=== PATIENT | female | born 1960 | race Asian ===

== ENCOUNTER 2022-09-11 20:41 | Inpatient (IN) ==
[2022-09-11 21:27] LABS: Basophils # (auto) 0.04 K/uL (0-0.2); Basophils % (auto) 0.5 %; Eosinophils # (auto) 0.47 K/uL (0-0.50); Eosinophils % (auto) 5.8 %; Hematocrit (blood only) 35.1 % (37.0-47.0); Hemoglobin 11.4 g/dl (12.0-16.0); Immature Granulocytes # (auto) 0.02 K/uL (0.01-0.20); Immature Granulocytes % (auto) 0.2 %; Lymphocytes # (auto) 2.42 K/uL (1.2-3.4); Lymphocytes % (auto) 29.7 %; Mean Corpuscular Hemoglobin 26.3 pg (25.0-34.0); Mean Corpuscular Hgb Conc 32.5 g/dL (32.0-36.0); Mean Corpuscular Volume 81.1 fL (80.0-100.0); Mean Platelet Volume 9.1 fL (9.4-12.4); Monocytes # (auto) 0.77 K/uL (0.11-0.59); Monocytes % (auto) 9.4 %; Neutrophils # (auto) 4.43 K/uL (1.40-6.50); Neutrophils % (auto) 54.4 %; Platelet Count 292 K/uL (130-400); RDW Coefficient of Variation 14.1 % (11.5-14.5); RDW Standard Deviation 41.7 fL (36.4-46.3); Red Blood Count 4.33 M/uL (4.20-5.40); White Blood Count 8.15 K/ul (4.8-10.8)
[2022-09-11 21:31] LABS: Alanine Aminotransferase 52 U/L (7-52); Albumin Globulin Ratio 1.4 (0.9-2); Alkaline Phosphatase 81 U/L (34-104); Anion Gap 7 (3-11); Aspartate Aminotransferase 55 U/L (13-39); BUN Creatinine Ratio 13.9 (10-20); Bilirubin,Total 0.4 mg/dl (0.2-1.0); Blood Urea Nitrogen 11 mg/dl (6-23); Calcium 9.2 mg/dl (8.6-10.3); Carbon Dioxide 25 mmol/L (21-32); Chloride 105 mmol/L (98-107); Est GFR (African American) 92.3 ml/min; Est GFR (Non-African American) 79.7 ml/min; Globulin 2.8 gm/dl (2.5-4.0); Glucose 130 mg/dl (70-99(Fasting)); Potassium 3.9 mmol/L (3.5-5.1); Sodium 137 mmol/L (136-145); Total Protein 6.8 gm/dl (6.0-8.3)
[2022-09-11 21:36] LABS: Troponin I High Sensitivity 3.7 pg/ml (0-14)
[2022-09-11 21:46] LABS: INR 0.9 (0.9-1.1); Partial Thromboplastin Ratio 0.9; Partial Thromboplastin Time 24.7 Seconds (21.0-31.0); Prothrombin Time 10.3 Seconds (9.0-12.0)
[2022-09-11 23:09] LABS: Magnesium 1.9 mg/dl (1.7-2.4)
[2022-09-11] MEDS ORDERED: SODIUM CHLORIDE 0.9% 1000ML 1,000 ML IV ONE (23:57)
--- NOTE | 2022-09-12 00:23 | Emergency Department Note ---
Impression & Plan Syncope Admit to the [facility] ED Provider Note NAME: QUIANA ZUNIGA AGE: 61 SEX: F ARRIVES VIA: Walk-In INFORMANT: Patient and her daughter ED PROVIDER(S): Renetta Sanchez DO CHIEF COMPLAINT: Syncope PLAN: Disposition: Admit to the [facility] Condition: Guarded MEDICAL DECISION MAKING: This is a 61-year-old female patient who presents to the emergency department with her daughter after having 2 syncopal events at home. 1 episode was from a standing position after she had felt dizzy and lightheaded. The second episode was while the patient was eating. Patient has a history of near syncope following episode of electrolyte imbalance during a bout of dysentery. 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 There are no significant electrolyte abnormalities here in the emergency department today. Glucose is mildly elevated at 130. The patient is mildly anemic with a hemoglobin of 11.4. There is no leukocytosis. TSH and troponin are normal. AST is mildly elevated at 55. EKG is unremarkable. Orthostatic vital signs were negative. Patient was sent for CT scan of the brain which was negative. Patient continued to feel unwell with a head spinning sensation and dizziness which was worse upon standing. Patient will remain in the hospital on a pvc monitor to rule out dysrhythmia. [facility] Triage Nursing notes reviewed and agree with them. Additional history obtained from the daughter who is translating Vital Signs: reviewed and unremarkable Differential diagnosis: Dehydration, electrolyte abnormality, cardiac dysrhythmia, seizure, vasovagal syncope, vertigo ER treatment provided: Cardiac monitoring Twelve-lead EKG IV normal saline bolus Diagnostics interpreted by me: ECG: Normal sinus rhythm at a rate of [address] segment elevation or signs of ischemia. There is no ectopy. Cardiac Monitoring: Normal sinus rhythm at 81 Laboratory studies: See below Imaging studies: As per my independent interpretation Portable chest x-ray: No cardiomegaly or acute pulmonary pathology CT scan of the brain: See radiology report Consultation: I spoke on the telephone with a friend of the family who is a primary care physician in [place] HPI: 61/F arrives for evaluation of syncope. Patient felt dizzy yesterday and as if her head was spinning. She noticed that her dizziness got worse upon standing. Today, the patient had 2 separate episodes of fainting on while she was standing and one while she was sitting. She did not injure herself in any way. She has not had previous episodes of fainting. Daughter believes this may be as result of her not eating properly. PAST MEDICAL HISTORY:Hypertension, hypercholesterolemia, insomnia SOCIAL HISTORY:Patient is currently visiting her daughter here in the [place] from [facility]. She does not smoke or drink alcohol. HOME MEDICATIONS:See list ALLERGIES:See list VITALS:See Below PHYSICAL EXAMINATION: HEENT: Head - normocephalic and atraumatic. Pupils are equal, round, and reactive to light. Extraocular eye muscles are intact and sclera are anicteric. Ears - bilaterally patent canals with noninjected tympanic membranes and no evidence of hemotympanum. Nose - moist nasal mucosa without discharge. Mouth - extremely dry buccal mucosa. Oropharynx is nonerythematous and there is no tonsillar exudate or edema noted. Neck: Supple; no JVD, nuchal rigidity, cervical lymphadenopathy, or auscultated bruits. Heart: Regular rate and rhythm. There is a normal S1 and S2 with no murmurs, clicks, or gallops appreciated. Lungs: Clear to auscultation bilaterally with no wheezes, rales, or rhonchi. Abdomen: Soft, completely nontender, nondistended, with good bowel sounds. There are no palpable pulsatile masses or hepatosplenomegaly. There is no guarding, rigidity, or rebound noted. Extremities: No evidence of cyanosis, clubbing, or edema. There are easily palpable peripheral pulses. Neuro:The patient is awake and alert, oriented to day, time, and place. Muscle strength is 5/5 in all 4 extremities. 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 There are no cerebellar signs. ED COURSE: Times/Reassessments: 955 the patient was evaluated in room C2. A complete history and physical was performed. An IV lock was initiated and labs were drawn as above. An order was placed for continuous cardiac monitoring. The patient was in a normal sinus rhythm at a rate of 81. A twelve-lead EKG was obtained as described above. Orthostatic vital signs were obtained. A portable chest x-ray was performed. The patient was bolused with IV normal saline solution. Patient got up to go to the bathroom and seemed to be steady on her feet but when she returned to bed she seemed to be somewhat dizzy. I discussed the case with the patient family friend who is a physician in [place]. He was able to translate a bit better. Renetta Sanchez DO Past Med/Surg History Social History Smoking Status: Never smoker Second Hand Exposure: No; Do You Dip or Chew Tobacco: No; Hx Alcohol Use: No Hx Substance Use: No Preferred Language: Syriac Communication Ability: Effective Communication Tools: IPad Associate Professor Of Literacy Required: Yes and Voice Beliefs That Will Affect Care: None Current Living Situation: Family Other Information That Helps Us Care for You: No Feels Safe at Home: Yes Safety Concerns: Feels Safe At This Time Assistive Devices: None Allergies Allergies Allergy/AdvReac Type Severity Reaction Status Date / Time chicken derived AdvReac Intermediate Gastrointestinal Verified 09/11/22 22:55 Upset egg AdvReac Intermediate Gastrointestinal Verified 09/11/22 22:55 Upset pork derived (porcine) AdvReac Mild advent Verified 09/12/22 03:39 reason Home Meds Home Medications Medication Instructions Recorded Confirmed bisoprolol fumarate 5 mg tablet 2.5 mg PO DAILY 09/11/22 09/11/22 atorvastatin 10 mg PO DAILY 09/12/22 09/12/22 montelukast 10 mg PO DAILY 09/12/22 09/12/22 pantoprazole 20 mg PO DAILY PRN reflux 09/12/22 09/12/22 Results & Data (ED) Vital Signs Vital Signs - 24 hr 09/11/22 20:45 09/11/22 21:40 09/11/22 21:15 Temperature 36.8 C 36.8 C Temperature Source Temporal Artery Scan Oral Pulse Rate - Lying Pulse Rate - Sitting Pulse Rate 97 H 90 Pulse Rate [Left] 87 Respiratory Rate 18 18 Respiratory Effort / Characteristics Non-Labored Spontaneous Non-Labored Respiratory Depth Normal Normal Respiratory Pattern Regular Regular Blood Pressure - Lying Blood Pressure - Sitting Blood Pressure 156/81 H Blood Pressure [Left Arm] 125/88 Blood Pressure Mean 106 Blood Pressure Mean [Left Arm] 100 Pulse Oximetry 97 99 Oxygen Delivery Method Room Air Room Air Sepsis Recent Fever Within 48 Hours No Sepsis New/Unexplained Change in Mental Status No Sepsis Action Taken by Nursing No Action Required 09/11/22 22:47 09/11/22 23:13 09/12/22 01:00 Temperature Temperature Source Pulse Rate - Lying 83 Pulse Rate - Sitting 84 Pulse Rate 90 Pulse Rate [Left] 81 Respiratory Rate 16 Respiratory Effort / Characteristics Respiratory Depth Respiratory Pattern Blood Pressure - Lying 144/80 H Blood Pressure - Sitting 135/82 Blood Pressure Blood Pressure [Left Arm] 131/77 Blood Pressure Mean Blood Pressure Mean [Left Arm] 95 Pulse Oximetry 98 Oxygen Delivery Method Room Air Sepsis Recent Fever Within 48 Hours Sepsis New/Unexplained Change in Mental Status Sepsis Action Taken by Nursing Laboratory Data 09/11/22 21:00 09/11/22 21:00 Lab Results 09/11/22 09/11/22 09/11/22 Range/Units 21:00 21:00 21:00 WBC 8.15 (4.8-10.8) K/ul RBC 4.33 (4.20-5.40) M/uL Hgb 11.4 L (12.0-16.0) g/dl Hct 35.1 L (37.0-47.0) % MCV 81.1 (80.0-100.0) fL MCH 26.3 (25.0-34.0) pg MCHC 32.5 (32.0-36.0) g/dL RDW Std Deviation 41.7 (36.4-46.3) fL RDW Coeff of [place] 14.1 (11.5-14.5) % Plt Count 292 (130-400) K/uL MPV 9.1 L (9.4-12.4) fL Immature Gran % (Auto) 0.2 % Neut % (Auto) 54.4 % Lymph % (Auto) 29.7 % Montgomery % (Auto) 9.4 % Eos % (Auto) 5.8 % Baso % (Auto) 0.5 % Neut # (Auto) 4.43 (1.40-6.50) K/uL Lymph # (Auto) 2.42 (1.2-3.4) K/uL Montgomery # (Auto) 0.77 H (0.11-0.59) K/uL Eos # (Auto) 0.47 (0-0.50) K/uL Baso # (Auto) 0.04 (0-0.2) K/uL Immature Gran # (Auto) 0.02 (0.01-0.20) K/uL PT 10.3 (9.0-12.0) Seconds INR 0.9 (0.9-1.1) APTT 24.7 (21.0-31.0) Seconds PTT Ratio 0.9 Sodium 137 (136-145) mmol/L Potassium 3.9 (3.5-5.1) mmol/L Chloride 105 (98-107) mmol/L Carbon Dioxide 25 (21-32) mmol/L Anion Gap 7 (3-11) BUN 11 (6-23) mg/dl Creatinine 0.79 (0.6-1.2) mg/dl Est Cr Clr Drug Dosing Not Reportable Est GFR ( Amer) 92.3 ml/min Est GFR (Non-Af Amer) 79.7 ml/min BUN/Creatinine Ratio 13.9 (10-20) Glucose 130 H (70-99(Fasting)) mg/dl Estimat Average Glucose mg/dl Hemoglobin A1c (4.5-5.6) % Calcium 9.2 (8.6-10.3) mg/dl Magnesium 1.9 (1.7-2.4) mg/dl Total Bilirubin 0.4 (0.2-1.0) mg/dl AST 55 H (13-39) U/L ALT 52 (7-52) U/L Alkaline Phosphatase 81 (34-104) U/L Troponin I High Sens 3.7 (0-14) pg/ml Total Protein 6.8 (6.0-8.3) gm/dl Albumin 4.0 (3.4-5.0) gm/dl Globulin 2.8 (2.5-4.0) gm/dl Albumin/Globulin Ratio 1.4 (0.9-2) TSH (0.300-4.500) uIu/ml Urine Color Urine Appearance (Clear) Urine pH (4.5-7.5) Ur Specific Homer (1.000-1.030) Urine Protein (Negative) Urine Glucose (UA) (Negative) Urine Ketones (Negative) Urine Blood (Negative) Urine Nitrite (Negative) Urine Bilirubin (Negative) Urine Urobilinogen (Negative) Ur Leukocyte Esterase (Negative) SARS-CoV-2, RNA, NAAT (NEGATIVE) 09/11/22 09/11/22 09/11/22 Range/Units 21:00 21:00 23:26 WBC (4.8-10.8) K/ul RBC (4.20-5.40) M/uL Hgb (12.0-16.0) g/dl Hct (37.0-47.0) % MCV (80.0-100.0) fL MCH (25.0-34.0) pg MCHC (32.0-36.0) g/dL RDW Std Deviation (36.4-46.3) fL RDW Coeff of [place] (11.5-14.5) % Plt Count (130-400) K/uL MPV (9.4-12.4) fL Immature Gran % (Auto) % Neut % (Auto) % Lymph % (Auto) % Montgomery % (Auto) % Eos % (Auto) % Baso % (Auto) % Neut # (Auto) (1.40-6.50) K/uL Lymph # (Auto) (1.2-3.4) K/uL Montgomery # (Auto) (0.11-0.59) K/uL Eos # (Auto) (0-0.50) K/uL Baso # (Auto) (0-0.2) K/uL Immature Gran # (Auto) (0.01-0.20) K/uL PT (9.0-12.0) Seconds INR (0.9-1.1) APTT (21.0-31.0) Seconds PTT Ratio Sodium (136-145) mmol/L Potassium (3.5-5.1) mmol/L Chloride (98-107) mmol/L Carbon Dioxide (21-32) mmol/L Anion Gap (3-11) BUN (6-23) mg/dl Creatinine (0.6-1.2) mg/dl Est Cr Clr Drug Dosing Est GFR ( Amer) ml/min Est GFR (Non-Af Amer) ml/min BUN/Creatinine Ratio (10-20) Glucose (70-99(Fasting)) mg/dl Estimat Average Glucose 140 mg/dl Hemoglobin A1c 6.5 H (4.5-5.6) % Calcium (8.6-10.3) mg/dl Magnesium (1.7-2.4) mg/dl Total Bilirubin (0.2-1.0) mg/dl AST (13-39) U/L ALT (7-52) U/L Alkaline Phosphatase (34-104) U/L Troponin I High Sens 3.5 (0-14) pg/ml Total Protein (6.0-8.3) gm/dl Albumin (3.4-5.0) gm/dl Globulin (2.5-4.0) gm/dl Albumin/Globulin Ratio (0.9-2) TSH 2.008 (0.300-4.500) uIu/ml Urine Color Urine Appearance (Clear) Urine pH (4.5-7.5) Ur Specific Homer (1.000-1.030) Urine Protein (Negative) Urine Glucose (UA) (Negative) Urine Ketones (Negative) Urine Blood (Negative) Urine Nitrite (Negative) Urine Bilirubin (Negative) Urine Urobilinogen (Negative) Ur Leukocyte Esterase (Negative) SARS-CoV-2, RNA, NAAT (NEGATIVE) 09/12/22 09/12/22 Range/Units 01:28 02:15 WBC (4.8-10.8) K/ul RBC (4.20-5.40) M/uL Hgb (12.0-16.0) g/dl Hct (37.0-47.0) % MCV (80.0-100.0) fL MCH (25.0-34.0) pg MCHC (32.0-36.0) g/dL RDW Std Deviation (36.4-46.3) fL RDW Coeff of [place] (11.5-14.5) % Plt Count (130-400) K/uL MPV (9.4-12.4) fL Immature Gran % (Auto) % Neut % (Auto) % Lymph % (Auto) % Montgomery % (Auto) % Eos % (Auto) % Baso % (Auto) % Neut # (Auto) (1.40-6.50) K/uL Lymph # (Auto) (1.2-3.4) K/uL Montgomery # (Auto) (0.11-0.59) K/uL Eos # (Auto) (0-0.50) K/uL Baso # (Auto) (0-0.2) K/uL Immature Gran # (Auto) (0.01-0.20) K/uL PT (9.0-12.0) Seconds INR (0.9-1.1) APTT (21.0-31.0) Seconds PTT Ratio Sodium (136-145) mmol/L Potassium (3.5-5.1) mmol/L Chloride (98-107) mmol/L Carbon Dioxide (21-32) mmol/L Anion Gap (3-11) BUN (6-23) mg/dl Creatinine (0.6-1.2) mg/dl Est Cr Clr Drug Dosing Est GFR ( Amer) ml/min Est GFR (Non-Af Amer) ml/min BUN/Creatinine Ratio (10-20) Glucose (70-99(Fasting)) mg/dl Estimat Average Glucose mg/dl Hemoglobin A1c (4.5-5.6) % Calcium (8.6-10.3) mg/dl Magnesium (1.7-2.4) mg/dl Total Bilirubin (0.2-1.0) mg/dl AST (13-39) U/L ALT (7-52) U/L Alkaline Phosphatase (34-104) U/L Troponin I High Sens (0-14) pg/ml Total Protein (6.0-8.3) gm/dl Albumin (3.4-5.0) gm/dl Globulin (2.5-4.0) gm/dl Albumin/Globulin Ratio (0.9-2) TSH (0.300-4.500) uIu/ml Urine Color Yellow Urine Appearance Clear (Clear) Urine pH 7.5 (4.5-7.5) Ur Specific Homer 1.004 (1.000-1.030) Urine Protein Negative (Negative) Urine Glucose (UA) Negative (Negative) Urine Ketones Negative (Negative) Urine Blood Negative (Negative) Urine Nitrite Negative (Negative) Urine Bilirubin Negative (Negative) Urine Urobilinogen Negative (Negative) Ur Leukocyte Esterase Negative (Negative) SARS-CoV-2, RNA, NAAT NEGATIVE (NEGATIVE) Administered Medications Acetaminophen (Acetaminophen 325 Mg Tab) 650 mg PO Q4H PRN PRN Reason: Pain or Fever Stop: 10/12/22 04:40 Last Admin: 09/12/22 15:49 Dose: 650 mg Documented By: VANCE Amlodipine Besylate (Amlodipine Besylate 5 Mg Tab) 2.5 mg PO QAM [facility] Stop: 10/13/22 04:09 Last Admin: 09/13/22 04:57 Dose: 2.5 mg Documented By: CLEMENTINA Atorvastatin Calcium (Atorvastatin 10 Mg Tab) 10 mg PO HS ESAU Stop: 10/12/22 20:59 Last Admin: 09/12/22 21:03 Dose: Not Given Documented By: CLEMENTINA Potassium Chloride/Sodium Chloride (Normal Saline W/20 Meq Kcl) 20 meq in 1,000 mls @ 50 mls/hr IV .Q20H ONE; Protocol Stop: 09/13/22 23:59 Last Admin: 09/13/22 04:38 Dose: 50 mls/hr Documented By: CLEMENTINA Montelukast Sodium (Montelukast Sodium 10 Mg Tablet) 10 mg PO DAILY ESAU Stop: 10/12/22 08:59 Last Admin: 09/13/22 08:19 Dose: 10 mg Documented By: Admin: 09/12/22 09:19 Dose: Not Given Documented By: VANCE Discontinued Medications Acetaminophen (Acetaminophen 325 Mg Tab) 650 mg PO NOW STA Stop: 09/12/22 04:05 Last Admin: 09/12/22 04:09 Dose: 650 mg Documented By: NOEL Atorvastatin Calcium (Atorvastatin 10 Mg Tab) 10 mg PO DAILY ESAU Stop: 10/12/22 08:59 Last Admin: 09/12/22 09:19 Dose: Not Given Documented By: VANCE Sodium Chloride (Nss 1000ml) 1,000 mls @ 999 mls/hr IV .Q1H1M ONE Stop: 09/12/22 00:57 Last Infusion: 09/12/22 01:58 Dose: 0 mls/hr Documented By: Admin: 09/12/22 00:37 Dose: 999 mls/hr Documented By: NOEL Lactated Ringer's (Lr) 1,000 mls @ 125 mls/hr IV .Q8H ONE Stop: 09/12/22 11:24 Last Infusion: 09/12/22 16:08 Dose: 0 mls/hr Documented By: Infusion: 09/12/22 09:10 Dose: 125 mls/hr Documented By: Infusion: 09/12/22 05:14 Dose: 0 mls/hr Documented By: Admin: 09/12/22 03:37 Dose: 80 mls/hr Documented By: NOEL Magnesium Sulfate/Dextrose (Magnesium Sulfate / D5w) 1 gm in 100 mls @ 50 mls/hr IV ONE ONE Stop: 09/13/22 05:46 Last Admin: 09/13/22 04:38 Dose: 50 mls/hr Documented By: QG Nitroglycerin (Nitroglycerin Sl 0.4 Mg/Tab Tab) 0.4 mg SL NOW STA Stop: 09/13/22 03:45 Last Admin: 09/13/22 04:12 Dose: Not Given Documented By: CLEMENTINA Pantoprazole Sodium (Pantoprazole 40 Mg Tab) 40 mg PO DAILY [facility] Stop: 10/12/22 08:59 Last Admin: 09/12/22 09:19 Dose: Not Given Documented By: VANCE Pantoprazole Sodium (Pantoprazole 40 Mg Tab) 40 mg PO DAILY PRN PRN Reason: gerd Stop: 10/12/22 08:59 Last Admin: 09/12/22 21:01 Dose: 40 mg Documented By: CLEMENTINA Potassium Chloride (Potassium Chloride Pwd 20 Meq Pack) 20 meq PO NOW STA Stop: 09/13/22 05:15 Last Admin: 09/13/22 05:44 Dose: 20 meq Documented By: QG Discharge Plan Visit Data Chief Complaint: Syncope Stated Complaint: SYNCOPE ED Provider: Renetta Sanchez Discharge Problem: Syncope Patient Disposition: Admitted As Inpatient Discharge Instructions Interventions: ED Discharge Assessment Last Done: 09/12/22 04:48 Syncope Qualifiers: Syncope type: unspecified Qualified Code(s): R55 - Syncope and collapse
[2022-09-12 01:57] LABS: Appearance Urine Clear (Clear); Bilirubin Urine Negative (Negative); Blood Urine Negative (Negative); Color Urine Yellow; Glucose Urine UA Negative (Negative); Ketones Urine Negative (Negative); Leukocyte Esterase Urine Negative (Negative); Nitrite Urine Negative (Negative); Protein Urine Negative (Negative); Specific Gravity Urine 1.004 (1.000-1.030); Urobilinogen Urine Negative (Negative); pH Urine 7.5 (4.5-7.5)
--- NOTE | 2022-09-12 02:29 | CT Scan Report ---
Exam(s): CT HEAD Without Contrast EXAM: CT Head Without Intravenous Contrast CLINICAL HISTORY: Syncope hit head. TECHNIQUE: Axial computed tomography images of the head/brain without intravenous contrast. CTDI is 36.67 mGy and DLP is 625.8 mGy-cm. Automated exposure control was utilized for the study. A dose lowering technique was utilized adhering to the principles of ALARA. COMPARISON: No relevant prior studies available. FINDINGS: Brain: Unremarkable. No hemorrhage. No significant white matter disease. No edema. Ventricles: Unremarkable. No ventriculomegaly. Bones/joints: Unremarkable. No acute fracture. Soft tissues: No significant overlying acute traumatic soft tissue abnormality. No radiopaque foreign body. Sinuses: Minimal mucosal thickening of a few ethmoid air cells and the minimally included superior right maxillary sinus. Mastoid air cells: Unremarkable as visualized. No mastoid effusion. IMPRESSION: No acute intracranial process identified. Electronically signed by: Carmine Hooks MD 09/12/22 02:28 AM
--- NOTE | 2022-09-12 03:24 | History & Physical Report ---
Date of Service September 12, 2022 Assessment & Plan (1) Syncope: Plan: 2 witnessed recurrent events Possible orthostasis given more pronounced symptoms in the upright position as per patient rule out Rule out arrhythmia, cardiac valvular pathology HTN, currently stable hyperlipidemia on statin Rx hx GERD, on intermittent PPI chronic anemia, hemoglobin at baseline Hyperglycemia rule out DM OBS Medical telemetry IVF continue Check orthostatic vitals, TTE for syncope work-up Continue home beta-rohith for now Hold amlodipine/losartan combo Rx (Of note, patient requesting to take her home meds procured in [facility] inpatient.) Check hemoglobin A1c DVT prophylaxis. SCDs Re: Recent head trauma Full code Patient daughter requesting updates from providers. Ms. Ramila Andrews, contact #[phone]. Text document was generated using TSB voice recognition software. It may contain grammatical or spelling errors. Kindly contact undersigned for clarification of any documentation item in question. History of Present Illness Chief Complaint: Recurrent syncope Primary Care Provider: NO PCP History obtained from patient, family, and records. Medical history significant for HTN, hyperlipidemia, GERD, chronic anemia (possible baseline hemoglobin of 11-12 as per patient). 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 Patient not feeling well the last few days. Patient noted lightheaded symptoms on the upright position last night. Transient syncopal event resulting in head trauma witnessed by daughter. Patient remembers blacking out. Denies chest pain, SOB. No witnessed seizures, tongue biting, incontinence. Headache after head trauma. Patient may have been out for about a minute as per daughter. Another syncopal event witnessed by daughter while patient eating. Unresponsive episode not as prolonged as the first one. Patient brought to the ER for evaluation. 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 Allergies Allergy/AdvReac Type Severity Reaction Status Date / Time chicken derived AdvReac Intermediate Gastrointestinal Verified 09/11/22 22:55 Upset egg AdvReac Intermediate Gastrointestinal Verified 09/11/22 22:55 Upset pork derived (porcine) AdvReac Mild sikhism Verified 09/12/22 03:39 reason Home Medications Medication Instructions Recorded Confirmed Type amlodipine 5 mg-olmesartan 20 mg 1 tab PO DAILY 09/11/22 09/11/22 History tablet bisoprolol fumarate 5 mg tablet 2.5 mg PO DAILY 09/11/22 09/11/22 History atorvastatin 10 mg PO DAILY 09/12/22 09/12/22 History montelukast 10 mg PO DAILY 09/12/22 09/12/22 History pantoprazole 20 mg PO DAILY PRN reflux 09/12/22 09/12/22 History Past Med/Surg History Social History Smoking Status: Never smoker Second Hand Exposure: No; Do You Dip or Chew Tobacco: No; Hx Alcohol Use: No Hx Substance Use: No Preferred Language: Maltese Communication Ability: Effective Communication Tools: IPad Scheduler Maintenance Required: Yes and Voice Beliefs That Will Affect Care: None Current Living Situation: Family Other Information That Helps Us Care for You: No Feels Safe at Home: Yes Safety Concerns: Feels Safe At This Time Assistive Devices: None Review of Systems Review of Systems: As per HPI, all other systems reviewed and negative Physical Exam Physical Exam: GENERAL: Comfortable, slightly anxious, no respiratory distress SKIN: Normal color, warm HEENT: [place] palpebral conjunctivae, no ptosis, dry buccal mucosa NECK : Supple, short neck, no tenderness CHEST : CTA, no tenderness HEART : RRR, no obvious murmurs ABDOMEN: Some distention, nontender EXTREMITIES : No LE swelling/tenderness, no other conspicuous deformities noted NEUROLOGIC : Coherent, no facial asymmetry, no other gross focality Results & Data Results & Data Vital Signs (Past 12 Hours) Vital Signs Temp Pulse Pulse Resp BP BP Pulse Ox 09/12/22 01:00 90 09/11/22 23:13 81 16 131/77 98 09/11/22 21:15 90 09/11/22 21:40 36.8 C 87 18 125/88 99 09/11/22 20:45 36.8 C 97 H 18 156/81 H 97 O2 Del Method 09/12/22 01:00 09/11/22 23:13 Room Air 09/11/22 21:15 09/11/22 21:40 Room Air 09/11/22 20:45 Room Air Laboratory Results Laboratory Results WBC 8.15 K/ul (4.8-10.8) 09/11/22 21:00 RBC 4.33 M/uL (4.20-5.40) 09/11/22 21:00 Hgb 11.4 g/dl (12.0-16.0) L 09/11/22 21:00 Hct 35.1 % (37.0-47.0) L 09/11/22 21:00 MCV 81.1 fL (80.0-100.0) 09/11/22 21:00 MCH 26.3 pg (25.0-34.0) 09/11/22 21:00 MCHC 32.5 g/dL (32.0-36.0) 09/11/22:00 RDW Std Deviation 41.7 fL (36.4-46.3) 09/11/22: RDW Coeff of Loida 14.1 % (11.5-14.5) 09/11/22: Plt Count 292 K/uL (130-400) 09/11/22 21:00 MPV 9.1 fL (9.4-12.4) L 09/11/22 21:00 Immature Gran % (Auto) 0.2 % 09/11/22:00 Neut % (Auto) 54.4 % 09/11/22 21:00 Lymph % (Auto) 29.7 % 09/11/22 21:00 [place] % (Auto) 9.4 % 09/11/22 21:00 Eos % (Auto) 5.8 % 09/11/22 21:00 Baso % (Auto) 0.5 % 09/11/22 21:00 Neut # (Auto) 4.43 K/uL (1.40-6.50) 09/11/22 21:00 Lymph # (Auto) 2.42 K/uL (1.2-3.4) 09/11/22 21:00 [place] # (Auto) 0.77 K/uL (0.11-0.59) H 09/11/22 21:00 Eos # (Auto) 0.47 K/uL (0-0.50) 09/11/22 21:00 Baso # (Auto) 0.04 K/uL (0-0.2) 09/11/22 21:00 Immature Gran # (Auto) 0.02 K/uL (0.01-0.20) 09/11/22 21:00 PT 10.3 Seconds (9.0-12.0) 09/11/22 21:00 INR 0.9 (0.9-1.1) 09/11/22 21:00 APTT 24.7 Seconds (21.0-31.0) 09/11/22 21:00 PTT Ratio 0.9 09/11/22 21:00 Sodium 137 mmol/L (136-145) 09/11/22 21:00 Potassium 3.9 mmol/L (3.5-5.1) 09/11/22 21:00 Chloride 105 mmol/L (98-107) 09/11/22 21:00 Carbon Dioxide 25 mmol/L (21-32) 09/11/22 21:00 Anion Gap 7 (3-11) 09/11/22 21:00 BUN 11 mg/dl (6-23) 09/11/22 21:00 Creatinine 0.79 mg/dl (0.6-1.2) 09/11/22 21:00 Est Cr Clr Drug Dosing Not Reportable 09/11/22 21:00 Est GFR ( Amer) 92.3 ml/min 09/11/22 21:00 Est GFR (Non-Af Amer) 79.7 ml/min 09/11/22 21:00 BUN/Creatinine Ratio 13.9 (10-20) 09/11/22 21:00 Glucose 130 mg/dl (70-99(Fasting)) H 09/11/22 21:00 Calcium 9.2 mg/dl (8.6-10.3) 09/11/22 21:00 Magnesium 1.9 mg/dl (1.7-2.4) 09/11/22 21:00 Total Bilirubin 0.4 mg/dl (0.2-1.0) 09/11/22 21:00 AST 55 U/L (13-39) H 09/11/22 21:00 ALT 52 U/L (7-52) 09/11/22 21:00 Alkaline Phosphatase 81 U/L (34-104) 09/11/22 21:00 Troponin I High Sens 3.5 pg/ml (0-14) 09/11/22 23:26 Total Protein 6.8 gm/dl (6.0-8.3) 09/11/22 21:00 Albumin 4.0 gm/dl (3.4-5.0) 09/11/22 21:00 Globulin 2.8 gm/dl (2.5-4.0) 09/11/22 21:00 Albumin/Globulin Ratio 1.4 (0.9-2) 09/11/22 21:00 TSH 2.008 uIu/ml (0.300-4.500) 09/11/22 21:00 Urine Color Yellow 09/12/22 01:28 Urine Appearance Clear (Clear) 09/12/22 01:28 Urine pH 7.5 (4.5-7.5) 09/12/22 01:28 Ur Specific [place] 1.004 (1.000-1.030) 09/12/22 01:28 Urine Protein Negative (Negative) 09/12/22 01:28 Urine Glucose (UA) Negative (Negative) 09/12/22 01:28 Urine Ketones Negative (Negative) 09/12/22 01:28 Urine Blood Negative (Negative) 09/12/22 01:28 Urine Nitrite Negative (Negative) 09/12/22 01:28 Urine Bilirubin Negative (Negative) 09/12/22 01:28 Urine Urobilinogen Negative (Negative) 09/12/22 01:28 Ur Leukocyte Esterase Negative (Negative) 09/12/22 01:28 SARS-CoV-2, RNA, NAAT NEGATIVE (NEGATIVE) 09/12/22 02:[address] 09/12/22 01:57 Exam(s): CT HEAD Without Contrast EXAM: CT Head Without Intravenous Contrast CLINICAL HISTORY: Syncope hit head. TECHNIQUE: Axial computed tomography images of the head/brain without intravenous contrast. CTDI is 36.67 mGy and DLP is 625.8 mGy-cm. Automated exposure control was utilized for the study. A dose lowering technique was utilized adhering to the principles of ALARA. COMPARISON: No relevant prior studies available. FINDINGS: Brain: Unremarkable. No hemorrhage. No significant white matter disease. No edema. Ventricles: Unremarkable. No ventriculomegaly. Bones/joints: Unremarkable. No acute fracture. Soft tissues: No significant overlying acute traumatic soft tissue abnormality. No radiopaque foreign body. Sinuses: Minimal mucosal thickening of a few ethmoid air cells and the minimally included superior right maxillary sinus. Mastoid air cells: Unremarkable as visualized. No mastoid effusion. IMPRESSION: No acute intracranial process identified. Electronically signed by: Carmine Hooks MD 09/12/22 02:28 AM Diagnostic Findings Chest x-ray as per my interpretation no congestion EKG as per my interpretation : Rate 95, NSR, normal axis, T wave flattening lateral leads
[2022-09-12] MEDS ORDERED: LACTATED RINGER'S 1,000 ML IV ONE (03:25)
[2022-09-12] MEDS ORDERED: ACETAMINOPHEN 325 MG TAB PO STA (04:04)
[2022-09-12] MEDS ORDERED: [UNRECOGNIZED DRUG - OTHER] PRN (04:15)
[2022-09-12] MEDS ORDERED: PANTOprazole 40 MG TAB PO PRN ×2 (04:41→20:31)
[2022-09-12] MEDS ORDERED: PROMETHAZINE HCL 6.25 MG in SODIUM CHLORIDE 0.9% 50 ML IV PRN (04:41)
[2022-09-12 06:26] LABS: BUN Creatinine Ratio 12.1 (10-20); Calcium 9.4 mg/dl (8.6-10.3); Creatinine Clr Calc Pharmacy 74.3 ml/min; Potassium 3.8 mmol/L (3.5-5.1)
[2022-09-12 06:27] LABS: Basophils # (auto) 0.05 K/uL (0-0.2); Basophils % (auto) 0.7 %; Eosinophils # (auto) 0.55 K/uL (0-0.50); Eosinophils % (auto) 7.5 %; Hematocrit (blood only) 37.2 % (37.0-47.0); Immature Granulocytes # (auto) 0.03 K/uL (0.01-0.20); Immature Granulocytes % (auto) 0.4 %; Lymphocytes # (auto) 2.61 K/uL (1.2-3.4); Lymphocytes % (auto) 35.6 %; Mean Corpuscular Hemoglobin 26.8 pg (25.0-34.0); Mean Corpuscular Hgb Conc 32.3 g/dL (32.0-36.0); Mean Corpuscular Volume 83.2 fL (80.0-100.0); Mean Platelet Volume 9.1 fL (9.4-12.4); Monocytes # (auto) 0.55 K/uL (0.11-0.59); Monocytes % (auto) 7.5 %; Neutrophils # (auto) 3.55 K/uL (1.40-6.50); Neutrophils % (auto) 48.3 %; Platelet Count 299 K/uL (130-400); RDW Coefficient of Variation 14.1 % (11.5-14.5); Red Blood Count 4.47 M/uL (4.20-5.40); White Blood Count 7.34 K/ul (4.8-10.8)
[2022-09-12] MEDS ORDERED: BISOPROLOL FUMARATE PO SCH (09:00)
[2022-09-12] MEDS ORDERED: BISOPROLOL FUMARATE 5 MG TAB PO SCH (09:00)
[2022-09-12] MEDS ORDERED: PANTOprazole 40 MG TAB PO SCH (09:00)
[2022-09-12] MEDS ORDERED: MONTELUKAST SODIUM 10 MG TABLET PO SCH (09:00)
[2022-09-12] MEDS ORDERED: ATORVASTATIN 10 MG TAB PO SCH (09:00)
[2022-09-12] MEDS ORDERED: ATORVASTATIN 10 MG PO SCH (09:00)
[2022-09-12] MEDS ORDERED: PROVAIR PO SCH (09:00)
[2022-09-12] MEDS: MONTELUKAST SODIUM 10 MG TABLET PO SCH (09:19)
--- NOTE | 2022-09-12 09:26 | XRay Report ---
XR chest 1V not portable CLINICAL HISTORY: Chest pain, nonspecific TECHNIQUE: Single frontal radiograph of the chest was obtained. Comparison: None available at the time of this dictation. FINDINGS: No lines and tubes are seen. The cardiomediastinal silhouette is normal. The lungs are clear. No evid ence of pleural effusion or pneumothorax. IMPRESSION: No acute chest disease. ACT 112: Negative or not required by law. Electronically signed by: Alexander Baird M.D. 09/12/2022 9:24 AM
--- NOTE | 2022-09-12 11:15 | Electrocardiogram Report ---
Test Reason : Blood Pressure : / mmHG Vent. Rate : 093 BPM Atrial Rate : 093 BPM P-R Int : 158 ms QRS Dur : 076 ms QT Int : 310 ms P-R-T Axes : 055 022 045 degrees QTc Int : 385 ms Normal sinus rhythm Possible Left atrial enlargement Low voltage QRS Abnormal ECG No previous ECGs available Confirmed by Kennedy Weston ([id number]) on 09/12/2022 11:15:33 AM Referred By: REFERRED SELF Confirmed By:Kennedy Weston
[2022-09-12] MEDS: ACETAMINOPHEN 325 MG TAB PO PRN (15:49)
--- NOTE | 2022-09-12 16:33 | Communication Note ---
Date of Service: September 12, 2022 Patient seen and examined at bedside. She is comfortably lying on the bed; not in any distress. She denies any headache, fever, chills, nausea, vomiting. Constitutional: WD/WN, vitals as above, NAD, sitting up in bed, pleasant, conversing easily Respiratory: normal respiratory effort, lungs clear to auscultation, no wheeze, rales, rhonchi. Normal insp/exp effort, no accessory muscle use Cardiovascular: RRR, no murmur, no edema Vessels: no JVD or carotid bruit Chest: normal inspection of chest Abdomen: normal bowel sounds, soft, nontender, no hepatosplenomegaly Musculoskeletal: no cyanosis or clubbing, extremities motor strength 5/5 Skin: no rashes, warm and dry normal turgor Neurologic: PERRL, EOMI, accommodation nl, no face palsy, no dysarthria CN's II- XI intact bilaterally and moves all extremities Psychiatric: A+Ox3, euthymic affect Orthostatics were done; negative so far. Hold antihypertensive for now. Echocardiogram results reviewed; EF of 55 to 60% with right ventricle systolic function normal. Continue to monitor on telemetry overnight. Possible discharge in a.m. depending on her clinical course.
[2022-09-12] MEDS: ATORVASTATIN 10 MG TAB PO SCH (21:03)
[2022-09-13] MEDS ORDERED: NITROGLYCERIN SL 0.4 MG/TAB TAB SL STA (03:44)
--- NOTE | 2022-09-13 03:45 | Communication Note ---
Date of Service: September 13, 2022 345 AM Made aware by RN of patient issues. Patient woke up from sleep feeling dizzy and having palpitations. SBP 180s, Heart rate 72. No headache. Patient initially complained of chest discomfort to RN but later denied it. Noted feeling with nausea without abdominal pain. Patient felt like she was going to blackout again. Dropped QRS on the monitor for a minute duration as per RN. AP Hypertensive urgency Dropped QRS, possible symptomatic bradycardia Abnormal LFTs Resume low-dose home amlodipine for now. Continue to hold patient's home beta-rohith Cardiology consult Re: Dropped QRS, possible symptomatic bradycardia, history recurrent syncope N.p.o. until patient seen by Cardiology in anticipation of procedure. PCU transfer if with recurrent bradycardia/dropped beats. Check liver ultrasound Plan of care discussed with patient at bedside and Dr. Johnston via messenger call (patient's friend, practicing EPS/auto garage attendant from [facility]) as per patient request.
[2022-09-13] MEDS ORDERED: MAGNESIUM SULFATE / D5W 1 GM/100 ML BAG IV ONE (03:47)
[2022-09-13] MEDS ORDERED: NSS + 20MEQ KCL 20 MEQ/1,000 ML BAG IV ONE (04:00)
[2022-09-13] MEDS ORDERED: traMADol HCL 50 MG TABLET PO PRN (04:04)
[2022-09-13 04:39] LABS: Basophils # (auto) 0.04 K/uL (0-0.2); Basophils % (auto) 0.6 %; Eosinophils # (auto) 0.45 K/uL (0-0.50); Eosinophils % (auto) 6.9 %; Hematocrit (blood only) 35.3 % (37.0-47.0); Hemoglobin 11.5 g/dl (12.0-16.0); Immature Granulocytes # (auto) 0.01 K/uL (0.01-0.20); Immature Granulocytes % (auto) 0.2 %; Lymphocytes # (auto) 2.75 K/uL (1.2-3.4); Lymphocytes % (auto) 41.9 %; Mean Corpuscular Hemoglobin 26.6 pg (25.0-34.0); Mean Corpuscular Hgb Conc 32.6 g/dL (32.0-36.0); Mean Corpuscular Volume 81.7 fL (80.0-100.0); Mean Platelet Volume 8.9 fL (9.4-12.4); Monocytes # (auto) 0.54 K/uL (0.11-0.59); Monocytes % (auto) 8.2 %; Neutrophils # (auto) 2.77 K/uL (1.40-6.50); Neutrophils % (auto) 42.2 %; Platelet Count 278 K/uL (130-400); RDW Coefficient of Variation 13.8 % (11.5-14.5); RDW Standard Deviation 41.2 fL (36.4-46.3); Red Blood Count 4.32 M/uL (4.20-5.40); White Blood Count 6.56 K/ul (4.8-10.8)
[2022-09-13 04:48] LABS: BUN Creatinine Ratio 11.9 (10-20); Bilirubin,Total 0.4 mg/dl (0.2-1.0); Calcium 9.3 mg/dl (8.6-10.3); Creatinine Clr Calc Pharmacy 73.2 ml/min; Est GFR (African American) 108.4 ml/min; Est GFR (Non-African American) 93.5 ml/min; Magnesium 1.8 mg/dl (1.7-2.4); Potassium 3.6 mmol/L (3.5-5.1); Total Protein 6.8 gm/dl (6.0-8.3)
[2022-09-13 04:54] LABS: Troponin I High Sensitivity 3.7 pg/ml (0-14)
[2022-09-13 04:56] LABS: Partial Thromboplastin Ratio 0.9; Partial Thromboplastin Time 26.3 Seconds (21.0-31.0)
[2022-09-13] MEDS: amLODIPine BESYLATE 5 MG TAB PO SCH (04:57)
[2022-09-13] MEDS ORDERED: POTASSIUM CHLORIDE PWD 20 MEQ PACK PO STA (05:14)
[2022-09-13 07:00] LABS: Lyme Ab IgG w/WB Rflx Negative (Negative); Lyme Ab IgM w/WB Rflx Negative (Negative)
--- NOTE | 2022-09-13 07:40 | Ultrasound Report ---
ABDOMINAL ULTRASOUND, RIGHT UPPER QUADRANT HISTORY: Acute generalized abdominal pain with elevated LFTs abn lfts, bloating. COMPARISON: None. FINDINGS: Pancreas: The pancreas demonstrates a normal echotexture. Liver: 13.3 cm in length. 5 mm likely benign echogenic focus of the right hepatic lobe. Gallbladder: No gallbladder wall thickening. No gallstones. CBD: 0.6 cm. Right kidney: No hydronephrosis. IMPRESSION: Unremarkable exam. ACT 112: Negative or not required by law. Electronically signed by: Adolfo Perez M.D. 09/13/2022 7:38 AM
[2022-09-13 08:00] LABS: Estimated Average Glucose 140 mg/dl; Hemoglobin A1C 6.5 % (4.5-5.6)
[2022-09-13] MEDS: MONTELUKAST SODIUM 10 MG TABLET PO SCH (08:19)
[2022-09-13] MEDS ORDERED: PANTOprazole 40 MG TAB PO SCH (10:00)
--- NOTE | 2022-09-13 10:49 | Electrocardiogram Report ---
Test Reason : Blood Pressure : / mmHG Vent. Rate : 075 BPM Atrial Rate : 075 BPM P-R Int : 164 ms QRS Dur : 078 ms QT Int : 380 ms P-R-T Axes : 054 047 044 degrees QTc Int : 424 ms Normal sinus rhythm Nonspecific ST and T wave abnormality Abnormal ECG When compared with ECG of 11-SEP-2022 20:58, No significant change was found Confirmed by Kennedy Weston ([id number]) on 09/13/2022 10:49:35 AM Referred By: REFERRED SELF Confirmed By:Kennedy Weston
--- NOTE | 2022-09-13 12:48 | Cardiology Consultation ---
Date of Consultation September 13, 2022 Assessment & Plan (1) Syncope: (2) Heart block: Plan The patient is currently clinically stable but she is having intermittent complete heart block which is resulting in syncope. No significant cardiac history. Cardiac markers as well as echocardiogram and EKGs are all unremarkable. I agree with holding her beta-rohith. I suspect however, that she will require permanent pacemaker. I will make her n.p.o. after midnight in the anticipation that she will receive a pacemaker tomorrow. At present because of the holiday no EP docs are available to review her case so in the morning I will consult with them. History of Present Illness Attending Physician: Wander Ariza MD History of Present Illness This is a 61-year-old female who is visiting family from [facility]. 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 Since her arrival here, she has had several syncopal events and thought she was dehydrated. She increased her fluids and electrolytes but eventually had an event which brought her to the hospital. She has no prior history of heart disease but fairly recently was evaluated by a programmer engineering and scientific in [facility] and had a work-up. She was told that it was most likely noncardiac and due to reflux. She has had no activity related chest pain or progressive shortness of breath. No orthopnea or lower extremity edema. No history of a heart murmur. She is treated for hypertension. She denies a history of diabetes but was hyperglycemic after admission with an elevated hemoglobin A1c. Also after admission, on telemetry she has had several episodes of complete heart block lasting for up to 9 seconds that were symptomatic. Cardiac troponins are negative. Baseline EKG is essentially normal. Unremarkable echocardiogram this admission. The patient has not been ill since arrival to the . No fever or chills. No tick bites. Allergies Allergy/AdvReac Type Severity Reaction Status Date / Time chicken derived AdvReac Intermediate Gastrointestinal Verified 09/11/22 22:55 Upset egg AdvReac Intermediate Gastrointestinal Verified 09/11/22 22:55 Upset pork derived (porcine) AdvReac Mild sikhism Verified 09/12/22 03:39 reason Home Medications Medication Instructions Recorded Confirmed Type bisoprolol fumarate 5 mg tablet 2.5 mg PO DAILY 09/11/22 09/11/22 History atorvastatin 10 mg PO DAILY 09/12/22 09/12/22 History montelukast 10 mg PO DAILY 09/12/22 09/12/22 History pantoprazole 20 mg PO DAILY PRN reflux 09/12/22 09/12/22 History Patient History Social History Smoking Status: Never smoker Second Hand Exposure: No; Do You Dip or Chew Tobacco: No; Hx Alcohol Use: No Hx Substance Use: No Preferred Language: Mongolian Communication Ability: Effective Communication Tools: IPad Tricot Knitter Required: Yes and Voice Beliefs That Will Affect Care: None Current Living Situation: Family Other Information That Helps Us Care for You: No Feels Safe at Home: Yes Safety Concerns: Feels Safe At This Time Assistive Devices: None Review of Systems Review of Systems: Review of Systems: See HPI for pertinent positives. All other 10 point review of systems are negative. Physical Exam Physical Exam: General: no acute distress and stated age Head: normocephalic, no masses, lesions, tenderness or abnormalities Eyes: conjunctiva are pink and non-injected, sclera clear Neck: supple, no adenopathy, no bruits, normal jugular venous pulse, no hepatojugular reflux Chest: normal shape and normal respiratory effort Lungs: clear to auscultation and percussion Cardiac Exam: - regular rate & rhythm, no murmurs gallops or rubs - normal S1, normal S2 Pulses: 2(+) throughout Abdomen: abdomen soft, non-tender, no abnormal masses and no hepatosplenomegaly Musculoskeletal: no gait disturbance, no joint inflammation, no deforming arthritis Extremities: no edema and no cyanosis Neuro: grossly normal exam Results & Data Vital Signs (Past 12 Hours) Vital Signs Temp Pulse Pulse Resp BP Pulse Ox O2 Del Method 09/13/22 10:50 36.6 C 81 16 149/77 H 98 Room Air 09/13/22 12:07 83 09/13/22 07:24 36.6 C 76 18 156/79 H 97 Room Air 09/13/22 05:27 163/91 H 09/13/22 03:35 153/75 H 100 Room Air 09/13/22 03:30 72 183/86 H 100 Room Air 09/13/22 04:44 156/74 H Laboratory Results Laboratory Results - last 24 hr 09/11/22 09/13/22 09/13/22 21:00 04:16 04:16 WBC 6.56 RBC 4.32 Hgb 11.5 L Hct 35.3 L MCV 81.7 MCH 26.6 MCHC 32.6 RDW Std Deviation 41.2 RDW Coeff of [place] 13.8 Plt Count 278 MPV 8.9 L Immature Gran % (Auto) 0.2 Neut % (Auto) 42.2 Lymph % (Auto) 41.9 [place] % (Auto) 8.2 Eos % (Auto) 6.9 Baso % (Auto) 0.6 Neut # (Auto) 2.77 Lymph # (Auto) 2.75 [place] # (Auto) 0.54 Eos # (Auto) 0.45 Baso # (Auto) 0.04 Immature Gran # (Auto) 0.01 APTT 26.3 PTT Ratio 0.9 Sodium Potassium Chloride Carbon Dioxide Anion Gap BUN Creatinine Est Cr Clr Drug Dosing Est GFR ( Amer) Est GFR (Non-Af Amer) BUN/Creatinine Ratio Glucose Estimat Average Glucose 140 Hemoglobin A1c 6.5 H Calcium Magnesium Total Bilirubin Direct Bilirubin AST ALT Alkaline Phosphatase Troponin I High Sens Total Protein Albumin Lipase Lyme Disease IgG Ab Lyme Disease IgM Ab 09/13/22 09/13/22 04:16 04:18 WBC RBC Hgb Hct MCV MCH MCHC RDW Std Deviation RDW Coeff of [place] Plt Count MPV Immature Gran % (Auto) Neut % (Auto) Lymph % (Auto) [place] % (Auto) Eos % (Auto) Baso % (Auto) Neut # (Auto) Lymph # (Auto) [place] # (Auto) Eos # (Auto) Baso # (Auto) Immature Gran # (Auto) APTT PTT Ratio Sodium 137 Potassium 3.6 Chloride 103 Carbon Dioxide 26 Anion Gap 8 BUN 8 Creatinine 0.67 Est Cr Clr Drug Dosing 73.2 Est GFR ( Amer) 108.4 Est GFR (Non-Af Amer) 93.5 BUN/Creatinine Ratio 11.9 Glucose 132 H Estimat Average Glucose Hemoglobin A1c Calcium 9.3 Magnesium 1.8 Total Bilirubin 0.4 Direct Bilirubin 0.0 AST 55 H ALT 75 H Alkaline Phosphatase 86 Troponin I High Sens 3.7 Total Protein 6.8 Albumin 4.0 Lipase 38 Lyme Disease IgG Ab Negative Lyme Disease IgM Ab Negative Medications Administered Current Inpatient Medications Acetaminophen (Acetaminophen 325 Mg Tab) 650 mg PO Q4H PRN PRN Reason: Pain or Fever Stop: 10/12/22 04:40 Last Admin: 09/12/22 15:49 Dose: 650 mg Amlodipine Besylate (Amlodipine Besylate 5 Mg Tab) 2.5 mg PO QAM [facility] Stop: 10/13/22 04:09 Last Admin: 09/13/22 04:57 Dose: 2.5 mg Atorvastatin Calcium (Atorvastatin 10 Mg Tab) 10 mg PO HS [facility] Stop: 10/12/22 20:59 Last Admin: 09/12/22 21:03 Dose: Not Given Promethazine HCl 6.25 mg/ (Sodium Chloride) 50.25 mls @ 201 mls/hr IV Q6H PRN PRN Reason: Nausea And Vomiting Stop: 10/12/22 04:40 Potassium Chloride/Sodium Chloride (Normal Saline W/20 Meq Kcl) 20 meq in 1,000 mls @ 50 mls/hr IV .Q20H ONE; Protocol Stop: 09/13/22 23:59 Last Admin: 09/13/22 04:38 Dose: 50 mls/hr Lorazepam (Lorazepam 0.5 Mg Tab) 0.25 mg PO TID PRN PRN Reason: Anxiety Stop: 10/13/22 04:50 Montelukast Sodium (Montelukast Sodium 10 Mg Tablet) 10 mg PO DAILY [facility] Stop: 10/12/22 08:59 Last Admin: 09/13/22 08:19 Dose: 10 mg Pantoprazole Sodium (Pantoprazole 40 Mg Tab) 40 mg PO DAILY [facility]SAU Stop: 10/13/22 09:59 Tramadol HCl (Tramadol Hcl 50 Mg Tablet) 25 mg PO Q4H PRN PRN Reason: Pain Stop: 10/13/22 04:03 (1) Syncope Syncope type: unspecified Qualified Code(s): R55 - Syncope and collapse
--- NOTE | 2022-09-13 15:13 | Hospitalist Progress Note ---
Date of Service September 13, 2022 Assessment & Plan (1) Syncope: (2) Heart block: Plan: 61-year-old female with past medical history of hypertension presented to the ED with 2 episode of syncopal episode Orthostatics positive on admission Patient was admitted to telemetry floor for further care On the night of september 12, 2022; patient had multiple episode of complete heart block which were symptomatic. Echocardiogram reviewed; EF of 55 to 60% with normal systolic function. No significant valvular pathology. EKG personally reviewed; normal sinus rhythm with nonspecific ST or T wave changes. Labs reviewed; hemoglobin 11.5; stable Lyme antibody negative Continue to hold bisoprolol. Amlodipine is started at low-dose of 2.5 mg once daily for high blood pressure Continue to monitor on telemetry. Discussed with cardiology; agree with holding beta-rohith. N.p.o. from midnight in anticipation of pacemaker tomorrow a.m. Chronic conditions; Hypertension -Home medication on hold. Currently on amlodipine 2.5 mg once daily Hyperlipidemiacontinue Lipitor GERDcontinue pantoprazole Full code DVT prophylaxis SCDs Discussed with patient's daughter over the phone. Answered questions/queries. Time spent evaluating patient, direct bedside care, chart review, placing orders, interpretation of diagnostic studies, discussion with consultants, patient, and family members, as well as other required patient management activities is 60 minutes. Please note the above document was generated using voice recognition software. It may contain grammatical, syntax or spelling errors. Any formal questions or concerns about the content, text or information contained within the body of this dictation should be directly addressed to the provider for clarification Admission and Anticipated Discharge Date Admission Date: September 12, 2022 Subjective Overnight, patient had several episode of complete heart block. Patient reported feeling dizzy and tingling sensation when that happened. Review of Systems Review of Systems: All systems reviewed & are unremarkable except as noted in Subjective Physical Exam Physical Exam: Constitutional: WD/WN, vitals as above, NAD, sitting up in bed, pleasant, conversing easily Respiratory: normal respiratory effort, lungs clear to auscultation, no wheeze, rales, rhonchi. Normal insp/exp effort, no accessory muscle use Cardiovascular: RRR, no murmur, no edema Vessels: no JVD or carotid bruit Chest: normal inspection of chest Abdomen: normal bowel sounds, soft, nontender, no hepatosplenomegaly Musculoskeletal: no cyanosis or clubbing, extremities motor strength 5/5 Skin: no rashes, warm and dry normal turgor Neurologic: PERRL, EOMI, accommodation nl, no face palsy, no dysarthria CN's II- XI intact bilaterally and moves all extremities Psychiatric: A+Ox3, euthymic affect Results & Data Results & Data Vital Signs (Past 12 Hours) Vital Signs Temp Pulse Pulse Resp BP Pulse Ox O2 Del Method 09/13/22 10:50 36.6 C 81 16 149/77 H 98 Room Air 09/13/22 12:07 83 09/13/22 07:24 36.6 C 76 18 156/79 H 97 Room Air 09/13/22 05:27 163/91 H 09/13/22 03:35 153/75 H 100 Room Air 09/13/22 03:30 72 183/86 H 100 Room Air 09/13/22 04:44 156/74 H Laboratory Results Laboratory Results WBC 6.56 K/ul (4.8-10.8) 09/13/22 04:16 RBC 4.32 M/uL (4.20-5.40) 09/13/22 04:16 Hgb 11.5 g/dl (12.0-16.0) L 09/13/22 04:16 Hct 35.3 % (37.0-47.0) L 09/13/22 04:16 MCV 81.7 fL (80.0-100.0) 09/13/22 04:16 MCH 26.6 pg (25.0-34.0) 09/13/22 04:16 MCHC 32.6 g/dL (32.0-36.0) 09/13/22 04:16 RDW Std Deviation 41.2 fL (36.4-46.3) 09/13/22 04:16 RDW Coeff of [place] 13.8 % (11.5-14.5) 09/13/22 04:16 Plt Count 278 K/uL (130-400) 09/13/22 04:16 MPV 8.9 fL (9.4-12.4) L 09/13/22 04:16 Immature Gran % (Auto) 0.2 % 09/13/22 04:16 Neut % (Auto) 42.2 % 09/13/22 04:16 Lymph % (Auto) 41.9 % 09/13/22 04:16 Boyle % (Auto) 8.2 % 09/13/22 04:16 Eos % (Auto) 6.9 % 09/13/22 04:16 Baso % (Auto) 0.6 % 09/13/22 04:16 Neut # (Auto) 2.77 K/uL (1.40-6.50) 09/13/22 04:16 Lymph # (Auto) 2.75 K/uL (1.2-3.4) 09/13/22 04:16 Boyle # (Auto) 0.54 K/uL (0.11-0.59) 09/13/22 04:16 Eos # (Auto) 0.45 K/uL (0-0.50) 09/13/22 04:16 Baso # (Auto) 0.04 K/uL (0-0.2) 09/13/22 04:16 Immature Gran # (Auto) 0.01 K/uL (0.01-0.20) 09/13/22 04:16 PT 10.3 Seconds (9.0-12.0) 09/11/22 21:00 INR 0.9 (0.9-1.1) 09/11/22 21:00 APTT 26.3 Seconds (21.0-31.0) 09/13/22 04:16 PTT Ratio 0.9 09/13/22 04:16 Sodium 137 mmol/L (136-145) 09/13/22 04:16 Potassium 3.6 mmol/L (3.5-5.1) 09/13/22 04:16 Chloride 103 mmol/L (98-107) 09/13/22 04:16 Carbon Dioxide 26 mmol/L (21-32) 09/13/22 04:16 Anion Gap 8 (3-11) 09/13/22 04:16 BUN 8 mg/dl (6-23) 09/13/22 04:16 Creatinine 0.67 mg/dl (0.6-1.2) 09/13/22 04:16 Est Cr Clr Drug Dosing 73.2 ml/min 09/13/22 04:16 Est GFR ( Amer) 108.4 ml/min 09/13/22 04:16 Est GFR (Non-Af Amer) 93.5 ml/min 09/13/22 04:16 BUN/Creatinine Ratio 11.9 (10-20) 09/13/22 04:16 Glucose 132 mg/dl (70-99(Fasting)) H 09/13/22 04:16 POC Glucose 146 mg/dl (70-99) H 09/12/22 10:57 Estimat Average Glucose 140 mg/dl 09/11/22 21:00 Hemoglobin A1c 6.5 % (4.5-5.6) H 09/11/22 21:00 Calcium 9.3 mg/dl (8.6-10.3) 09/13/22 04:16 Magnesium 1.8 mg/dl (1.7-2.4) 09/13/22 04:16 Total Bilirubin 0.4 mg/dl (0.2-1.0) 09/13/22 04:16 Direct Bilirubin 0.0 mg/dl (0-0.2) 09/13/22 04:16 AST 55 U/L (13-39) H 09/13/22 04:16 ALT 75 U/L (7-52) H 09/13/22 04:16 Alkaline Phosphatase 86 U/L (34-104) 09/13/22 04:16 Troponin I High Sens 3.7 pg/ml (0-14) 09/13/22 04:16 Total Protein 6.8 gm/dl (6.0-8.3) 09/13/22 04:16 Albumin 4.0 gm/dl (3.4-5.0) 09/13/22 04:16 Globulin 2.8 gm/dl (2.5-4.0) 09/11/22 21:00 Albumin/Globulin Ratio 1.4 (0.9-2) 09/11/22 21:00 Lipase 38 U/L (11-82) 09/13/22 04:16 TSH 2.008 uIu/ml (0.300-4.500) 09/11/22 21:00 Urine Color Yellow 09/12/22 01:28 Urine Appearance Clear (Clear) 09/12/22 01:28 Urine pH 7.5 (4.5-7.5) 09/12/22 01:28 Ur Specific Fraser 1.004 (1.000-1.030) 09/12/22 01:28 Urine Protein Negative (Negative) 09/12/22 01:28 Urine Glucose (UA) Negative (Negative) 09/12/22 01:28 Urine Ketones Negative (Negative) 09/12/22 01:28 Urine Blood Negative (Negative) 09/12/22 01:28 Urine Nitrite Negative (Negative) 09/12/22 01:28 Urine Bilirubin Negative (Negative) 09/12/22 01:28 Urine Urobilinogen Negative (Negative) 09/12/22 01:28 Ur Leukocyte Esterase Negative (Negative) 09/12/22 01:28 Lyme Disease IgG Ab Negative (Negative) 09/13/22 04:18 Lyme Disease IgM Ab Negative (Negative) 09/13/22 04:18 SARS-CoV-2, RNA, NAAT NEGATIVE (NEGATIVE) 09/12/22 02:15 Impressions Chest X-Ray 09/11/22 20:46 XR chest 1V not portable CLINICAL HISTORY: Chest pain, nonspecific TECHNIQUE: Single frontal radiograph of the chest was obtained. Comparison: None available at the time of this dictation. FINDINGS: No lines and tubes are seen. The cardiomediastinal silhouette is normal. The lungs are clear. No evidence of pleural effusion or pneumothorax. IMPRESSION: No acute chest disease. ACT 112: Negative or not required by law. Electronically signed by: Alexander Baird M.D. 09/12/2022 9:[address] 09/12/22 01:57 Exam(s): CT HEAD Without Contrast EXAM: CT Head Without Intravenous Contrast CLINICAL HISTORY: Syncope hit head. TECHNIQUE: Axial computed tomography images of the head/brain without intravenous contrast. CTDI is 36.67 mGy and DLP is 625.8 mGy-cm. Automated exposure control was utilized for the study. A dose lowering technique was utilized adhering to the principles of ALARA. COMPARISON: No relevant prior studies available. FINDINGS: Brain: Unremarkable. No hemorrhage. No significant white matter disease. No edema. Ventricles: Unremarkable. No ventriculomegaly. Bones/joints: Unremarkable. No acute fracture. Soft tissues: No significant overlying acute traumatic soft tissue abnormality. No radiopaque foreign body. Sinuses: Minimal mucosal thickening of a few ethmoid air cells and the minimally included superior right maxillary sinus. Mastoid air cells: Unremarkable as visualized. No mastoid effusion. IMPRESSION: No acute intracranial process identified. Electronically signed by: Carmine Hooks MD 09/12/22 02:28 AM Liver Ultrasound 09/13/22 05:52 ABDOMINAL ULTRASOUND, RIGHT UPPER QUADRANT HISTORY: Acute generalized abdominal pain with elevated LFTs abn lfts, bloating. COMPARISON: None. FINDINGS: Pancreas: The pancreas demonstrates a normal echotexture. Liver: 13.3 cm in length. 5 mm likely benign echogenic focus of the right hepatic lobe. Gallbladder: No gallbladder wall thickening. No gallstones. CBD: 0.6 cm. Right kidney: No hydronephrosis. IMPRESSION: Unremarkable exam. ACT 112: Negative or not required by law. Electronically signed by: Adolfo Perez M.D. 09/13/2022 7:38 AM (1) Syncope Syncope type: unspecified Qualified Code(s): R55 - Syncope and collapse
[2022-09-13] MEDS ORDERED: POTASSIUM CHLORIDE CRTAB 20 MEQ TABCR PO STA (16:34)
[2022-09-13] MEDS: ATORVASTATIN 10 MG TAB PO SCH (20:34)
[2022-09-13] MEDS: PANTOprazole 40 MG TAB PO SCH (22:37)
[2022-09-14] MEDS: LORazepam 0.5 MG TAB PO PRN ×2 (00:11→22:32)
[2022-09-14] MEDS: PANTOprazole 40 MG TAB PO SCH ×2 (07:56→20:17)
[2022-09-14] MEDS: amLODIPine BESYLATE 5 MG TAB PO SCH (07:56)
[2022-09-14] MEDS: MONTELUKAST SODIUM 10 MG TABLET PO SCH (07:56)
[2022-09-14] MEDS ORDERED: SODIUM CHLORIDE 0.9% 1000ML 1,000 ML IV SCH (08:30)
[2022-09-14 09:18] LABS: BUN Creatinine Ratio 8.1 (10-20); Calcium 9.4 mg/dl (8.6-10.3); Creatinine Clr Calc Pharmacy 66.3 ml/min; Est GFR (African American) 99.9 ml/min; Est GFR (Non-African American) 86.2 ml/min; Magnesium 1.9 mg/dl (1.7-2.4); Potassium 3.9 mmol/L (3.5-5.1)
[2022-09-14] MEDS ORDERED: LIDOCAINE 1% LOCAL 20 ML VIAL ONE (11:20)
[2022-09-14] MEDS ORDERED: WATER, STERILE FOR INJ 10 ML VIAL ONE (11:21)
[2022-09-14] MEDS ORDERED: VANCOMYCIN HCL 1000MG/20ML VIAL ONE (11:21)
[2022-09-14] MEDS ORDERED: BACITRACIN OINT 0.9 GM PKT ONE (11:21)
--- NOTE | 2022-09-14 11:26 | Cardiology Consultation ---
Date of Consultation September 14, 2022 Assessment & Plan (1) Syncope: (2) Intermittent complete heart block: Plan 1. Syncope: At this point it is almost certain that her syncope is due to periodic complete heart block. 2. Intermittent complete heart block: She has well-documented complete heart block in the setting of adorable echocardiogram and a baseline normal electrocardiogram. Her Lyme screen is negative. Although she did take bisoprolol (last dose 3 days ago) it seems unlikely that low-dose beta-blockade taken that long ago would contribute to continued intermittent complete heart block. I believe she will need a pacemaker. Since this is complete heart block and she is underlying sinus rhythm a dual-chamber device should be used. I discussed the indications, procedure, risks and alternatives of pacemaker implantation with her and she understands and agrees to proceed. Consent obtained. I also discussed the use of sedation and she agrees, consent obtained. I also discussed the procedure with her daughter on the telephone. 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 She has a history of hypertension and does have an elevated hemoglobin A1c although does not carry a diagnosis of diabetes mellitus. She does not have a history of heart disease although was evaluated by coat baster in [facility]. She has had a number of syncopal episodes recently and came to the emergency room, although there is no obvious cause she was admitted and on telemetry had episodes of complete heart block lasting for up to 9 seconds. Evaluation included electrocardiography which was normal, and echocardiogram done September 12, 2022 shows normal left ventricular function and no significant valvular abnormalities. She did have a Lyme screen which was negative. She is on a low-dose of bisoprolol (2.5 mg daily) last taken September 11, 2022. At the time of my evaluation she was feeling well, she did corroborate her feeling of presyncope and syncope which correlated with her periods of AV block at 3 AM. This has been occurring recently and was similar to what she had several days ago. She has no other cardiovascular symptoms. Allergies Allergy/AdvReac Type Severity Reaction Status Date / Time chicken derived AdvReac Intermediate Gastrointestinal Verified 09/11/22 22:55 Upset egg AdvReac Intermediate Gastrointestinal Verified 09/11/22 22:55 Upset pork derived (porcine) AdvReac Mild roman catholic Verified 09/12/22 03:39 reason Home Medications Medication Instructions Recorded Confirmed Type bisoprolol fumarate 5 mg tablet 2.5 mg PO DAILY 09/11/22 09/11/22 History atorvastatin 10 mg PO DAILY 09/12/22 09/12/22 History montelukast 10 mg PO DAILY 09/12/22 09/12/22 History pantoprazole 20 mg PO DAILY PRN reflux 09/12/22 09/12/22 History Patient History Social History Smoking Status: Never smoker Second Hand Exposure: No; Do You Dip or Chew Tobacco: No; Hx Alcohol Use: No Hx Substance Use: No Preferred Language: Luxembourgish Communication Ability: Effective Communication Tools: IPad [employer] Required: Yes and Voice Beliefs That Will Affect Care: None Current Living Situation: Family Other Information That Helps Us Care for You: No Feels Safe at Home: Yes Safety Concerns: Feels Safe At This Time Assistive Devices: None Review of Systems Review of Systems: All systems reviewed & are unremarkable except as noted in HPI & below She speaks reasonably good Dutch although there is something of a language barrier but she does not have other symptoms. Physical Exam Physical Exam: Constitutional: Alert, cooperative and in no distress. HEENT: Unremarkable Neck: No jugular venous distention, carotid pulses are normal and equal bilaterally without bruits. Pulmonary: Clear to auscultation bilaterally. Cardiac: Regular rhythm with no murmur, gallop or rub. Abdomen: Soft, nontender with normal bowel sounds. Extremities: No edema. Distal pulses intact. Neurologic: No focal findings. Gait is steady. Skin: No rash, ecchymoses or petechiae. Results & Data Vital Signs (Past 12 Hours) Vital Signs Temp Pulse Pulse Resp BP Pulse Ox O2 Del Method 09/14/22 07:57 36.5 C 103 H 18 144/79 H 98 Room Air 09/14/22 05:59 82 09/14/22 01:56 89 Laboratory Results Comprehensive Metabolic Panel 09/14/22 Range/Units 08:10 Sodium 137 (136-145) mmol/L Potassium 3.9 (3.5-5.1) mmol/L Chloride 104 (98-107) mmol/L Carbon Dioxide 26 (21-32) mmol/L BUN 6 (6-23) mg/dl Creatinine 0.74 (0.6-1.2) mg/dl Glucose 120 H (70-99(Fasting)) mg/dl Calcium 9.4 (8.6-10.3) mg/dl Intake and Output 09/13/22 09/14/22 09/14/22 22:59 06:59 14:59 Intake Total 200 / 1300 1000 / 1300 Output Total Balance 200 / 1300 1000 / 1300 -1 Intake: IV 1000 / 1100 Nss + 20Meq KCl 20 meq In 1,000 1000 / 1000 ml @ 50 mls/hr IV .Q20H ONE Rx #:[id number] Oral 200 / 200 Output: # Bowel Movements Other: Other Intake Source NPO # Unmeasured Voids 2 1 Diagnostic Findings Telemetry:I reviewed telemetry, she did have transient complete heart block la sting in excess of 10 seconds with rare esccape beats. The time coincided with her symptoms. PG Care Time/CCT Total # of Minutes Spent Total Time Spent with Patient: Total time spent is greater than 50% in coordination of care (as documented) at patient's floor/unit and/or counseling patient: Coding Level of Care Code 39544 IN/OBS CONSULT LVL 4,60M Diagnoses Syncope R55 Syncope type: unspecified Intermittent complete heart block I44.2 (1) Syncope Syncope type: unspecified Qualified Code(s): R55 - Syncope and collapse
[2022-09-14] MEDS ORDERED: fentaNYL citrate PF 100 MCG/2 ML VIAL ONE ×2 (12:01→13:35)
[2022-09-14] MEDS ORDERED: MIDAZOLAM HCL 5 MG/ML 1 ML VIAL ONE (12:01)
[2022-09-14] MEDS ORDERED: ceFAZolin 330 MG/ML 1 GM VIAL ONE (12:02)
--- NOTE | 2022-09-14 12:09 | Cardiology Progress Note ---
Date of Service September 14, 2022 Assessment & Plan (1) Syncope: (2) Heart block: Plan The EP consultation is appreciated. I agree with Dr. Avila that she will require a pacemaker. Her complete heart block is very symptomatic and recurrent even off of the beta-rohith which was low-dose and stopped several days ago. The plan is to proceed this afternoon. Admission and Anticipated Discharge Date Admission Date: September 13, 2022 Subjective The patient has been clinically stable. Unfortunately, no one is available in the room today. I did FaceTime with her daughter utilizing an iPhone as an body liner. Tried to answer all questions best I could. Review of Systems Review of Systems: Review of Systems: See HPI for pertinent positives. All other 10 point review of systems are negative. Physical Exam Physical Exam: General: no acute distress and stated age Head: normocephalic, no masses, lesions, tenderness or abnormalities Eyes: conjunctiva are pink and non-injected, sclera clear Neck: supple, no adenopathy, no bruits, normal jugular venous pulse, no hepatojugular reflux Chest: normal shape and normal respiratory effort Lungs: clear to auscultation and percussion Cardiac Exam: - regular rate & rhythm, no murmurs gallops or rubs - normal S1, normal S2 Pulses: 2(+) throughout Abdomen: abdomen soft, non-tender, no abnormal masses and no hepatosplenomegaly Musculoskeletal: no gait disturbance, no joint inflammation, no deforming arthritis Extremities: no edema and no cyanosis Neuro: grossly normal exam Results & Data Vital Signs (Past 12 Hours) Vital Signs Temp Pulse Pulse Resp BP Pulse Ox O2 Del Method 09/14/22 11:47 36.7 C 91 H 18 140/77 96 Room Air 09/14/22 07:57 36.5 C 103 H 18 144/79 H 98 Room Air 09/14/22 05:59 82 09/14/22 01:56 89 Laboratory Results Laboratory Results - last 24 hr 09/14/22 08:10 Sodium 137 Potassium 3.9 Chloride 104 Carbon Dioxide 26 Anion Gap 7 BUN 6 Creatinine 0.74 Est Cr Clr Drug Dosing 66.3 Est GFR ( Amer) 99.9 Est GFR (Non-Af Amer) 86.2 BUN/Creatinine Ratio 8.1 L Glucose 120 H Calcium 9.4 Magnesium 1.9 Medications Administered Current Inpatient Medications Acetaminophen (Acetaminophen 325 Mg Tab) 650 mg PO Q4H PRN PRN Reason: Pain or Fever Stop: 10/12/22 04:40 Last Admin: 09/12/22 15:49 Dose: 650 mg Amlodipine Besylate (Amlodipine Besylate 5 Mg Tab) 2.5 mg PO QAM [facility] Stop: 10/13/22 04:09 Last Admin: 09/14/22 07:56 Dose: Not Given Atorvastatin Calcium (Atorvastatin 10 Mg Tab) 10 mg PO HS [facility] Stop: 10/12/22 20:59 Last Admin: 09/13/22 20:34 Dose: 10 mg Promethazine HCl 6.25 mg/ (Sodium Chloride) 50.25 mls @ 201 mls/hr IV Q6H PRN PRN Reason: Nausea And Vomiting Stop: 10/12/22 04:40 Sodium Chloride (Nss 1000ml) 1,000 mls @ 80 mls/hr IV .[id number] [facility] Stop: 10/14/22 08:29 Last Admin: 09/14/22 09:23 Dose: 80 mls/hr Lorazepam (Lorazepam 0.5 Mg Tab) 0.25 mg PO TID PRN PRN Reason: Anxiety Stop: 10/13/22 04:50 Last Admin: 09/14/22 00:11 Dose: 0.25 mg Montelukast Sodium (Montelukast Sodium 10 Mg Tablet) 10 mg PO DAILY [facility] Stop: 10/12/22 08:59 Last Admin: 09/14/22 07:56 Dose: Not Given Pantoprazole Sodium (Pantoprazole 40 Mg Tab) 40 mg PO BID [facility] Stop: 10/13/22 22:29 Last Admin: 09/14/22 07:56 Dose: Not Given Tramadol HCl (Tramadol Hcl 50 Mg Tablet) 25 mg PO Q4H PRN PRN Reason: Pain Stop: 10/13/22 04:03 (1) Syncope Syncope type: unspecified Qualified Code(s): R55 - Syncope and collapse
--- NOTE | 2022-09-14 13:11 | Pre Anesthesia Assessment ---
Date of Service September 14, 2022 Pre Sedation Assessment Vital Signs Temp Pulse Pulse Pulse Resp BP Pulse Ox 09/14/22 11:47 36.7 C 91 H 18 140/77 96 09/14/22 07:57 36.5 C 103 H 18 144/79 H 98 09/14/22 05:59 82 09/14/22 01:56 89 09/13/22 23:11 36.8 C 84 18 121/69 96 09/13/22 19:57 36.9 C 90 18 134/78 98 09/13/22 15:00 94 H 09/13/22 15:02 36.6 C 86 16 126/76 97 O2 Del Method 09/14/22 11:47 Room Air 09/14/22 07:57 Room Air 09/14/22 05:59 09/14/22 01:56 09/13/22 23:11 Room Air 09/13/22 19:57 Room Air 09/13/22 15:00 09/13/22 15:02 Room Air Cardiovascular RRR, no murmur, no edema Respiratory normal respiratory effort, lungs clear to auscultation Pre-Sedation Airway Assessment Smoking Status: Never smoker Mallampati Class: II ASA: ASA2 NPO Status Date of Last Intake of Fluids: 09/13/22 Date of Last Intake of Solid Food: 09/13/22 Procedure Planning Contraindications for Sedation: none Current Medications Reviewed: Yes Notes The planned sedation has been discussed with the patient. Informed Consent was obtained. I have identified the patient, determined the appropriateness of sedation and have assessed the patient immediately prior to the procedure. All medicine(s) and interventions are by my order.
[2022-09-14] MEDS ORDERED: MIDAZOLAM HCL 1 MG/ML 2ML VIAL ONE (13:48)
--- NOTE | 2022-09-14 14:04 | Electrocardiogram Report ---
Test Reason : Blood Pressure : / mmHG Vent. Rate : 088 BPM Atrial Rate : 088 BPM P-R Int : 152 ms QRS Dur : 084 ms QT Int : 340 ms P-R-T Axes : 056 038 035 degrees QTc Int : 411 ms Normal sinus rhythm Nonspecific T wave abnormality Abnormal ECG When compared with ECG of 13-SEP-2022 03:50, No significant change was found Confirmed by Roger Saez ([id number]) on 09/14/2022 2:04:18 PM Referred By: REFERRED SELF Confirmed By:Roger Saez
--- NOTE | 2022-09-14 14:46 | Electrophysiology Report ---
Date of Service September 14, 2022 Electrophysiology Procedure Electrophysiology Procedure Report Preoperative diagnosis: Intermittent complete heart block Postoperative diagnosis: Same Procedure: Left subclavian venogram Dual-chamber left bundle branch pacemaker implantation Surgeon: Demetrius Avila MD Estimated blood loss: 20 cc Complications: None Disposition: Instructional Technologist recovery Procedure details: After obtaining informed consent for the procedure, the miranda ent was brought to the laboratory and prepped and draped in the standard sterile manner. Dye was injected the left arm IV site to opacify the left subclavian vein. The subclavian vein was identified and found to be free of obstruction. The left prepectoral region was anesthetized with 1% lidocaine local anesthetic and left axillary venipuncture was performed by percutaneous technique and a guidewire placed through the left subclavian vein into the superior vena cava. The area was further infiltrated with 1% lidocaine local anesthetic and a 5 cm incision was made parallel to the left clavicle and 2 cm below it and carried down to the anterior pectoralis fascia. A pacemaker pocket was formed by blunt dissection anterior to the pectoralis fascia and a vancomycin-soaked sponge was placed in the pocket. An 8 Albanian Medtronic lead introducer was placed over the guidewire into the left subclavian vein, the dilator and guidewire were removed and a bipolar active fixation steroid tipped atrial lead was advanced through the introducer into the superior vena cava. A guidewire was placed through the introducer and the introducer was stripped from the lead and guidewire. A 7 Albanian Medtronic lead introducer was placed over the guidewire into the left subclavian vein, the dilator and guidewire were removed. The atrial lead was temporarily positioned in the right ventricle for backup pacing. A C315 His 02 septal sheath was advanced through the introducer over a guidewire and advanced into the right ventricular outflow tract. The guidewire and dilator were removed and the sheath was positioned in a mid septal location. A bipolar active fixation steroid tipped ventricular lead was advanced through the introducer and rotated to advance the screw into the septum. Septal penetration was confirmed by dye injection through the sheath. Pacing and sensing thresholds were evaluated in bipolar configuration and are noted on the data sheet. The septal sheath was stripped away from the lead. A guidewire was placed back through the introducer and the introducer was removed over the the guidewire. Pacing and sensing thresholds in the septal lead were evaluated in bipolar confi guration and are recorded on the implant data sheet. The atrial lead was then removed from the right ventricle and using a curved stylette the atrial lead was positioned in the region of the atrial appendage and the screw extended fixing the lead in position. Pacing and sensing thresholds were evaluated in bipolar configuration and are recorded on the implant data sheet. Once the leads were in position they were attached to the anterior pectoralis fascia using 2 sutures of 2-0 silk around each lead collar. The vancomycin soaked sponge was removed from the pocket, hemostasis was obtained, the pacemaker was attached to the leads and placed in the pocket with the leads coiled beneath it. The incision was closed with a running double subcutaneous closure of 3-0 Vicryl absorbable suture, followed by running subcuticular skin closure of 4-0 Vicryl absorbable suture. Bacitracin ointment was placed on the incision and a dressing applied. [facility] Electrophysiology codes Indication for Procedure (1) Intermittent complete heart block: Pacing Procedure 1: Pacin Insert/Replace Pacer A & V Miscellaneous Procedures Procedure 1: EP Miscellaneous: 67359 Contrast injection for venography Procedure 2: EP Miscellaneous: 27018-57 Vengraphy, extremity PG Moderate Sedation Codes Moderate Sedation Codes Procedure 1: Sedation/Anesthesia: 23609 Mod Sedation by the same physician;Init15 Min Child Age 5 & Up Procedure 2: Sedation/Anesthesia: 93951 Mod Sedation by the same physician; Ea [id number] Minutes
--- NOTE | 2022-09-14 15:28 | Post Anesthesia Assessment ---
Date of Service September 14, 2022 Post Sedation Assessment Vital Signs Temp Pulse Pulse Pulse Resp BP BP 09/14/22 15:06 36.3 C L 83 154/83 H 09/14/22 14:55 90 16 151/89 H 09/14/22 14:40 90 16 127/95 09/14/22 11:47 36.7 C 91 H 18 140/77 09/14/22 07:57 36.5 C 103 H 18 144/79 H 09/14/22 05:59 82 09/14/22 01:56 89 09/13/22 23:11 36.8 C 84 18 121/69 09/13/22 19:57 36.9 C 90 18 134/78 Pulse Ox O2 Del Method 09/14/22 15:06 96 Room Air 09/14/22 14:55 98 Room Air 09/14/22 14:40 97 Room Air 09/14/22 11:47 96 Room Air 09/14/22 07:57 98 Room Air 09/14/22 05:59 09/14/22 01:56 09/13/22 23:11 96 Room Air 09/13/22 19:57 98 Room Air Recovery Score Activity: Moves 4 extremities Respiration: Deep Breath/Cough Circulation: +/-20% PreAnes Value Consciousness: Fully Awake Oxygen Saturation: > 92% On Room Air Post Anesthesia Score: 10 Discharge Sedation Level of Care: Fast Track Phase II Post Sedation Plan On clinical assessment, the patient appears to have tolerated the sedation without complications. Patient is recovering as anticipated. Patient will continue to be monitored by nursing and may be discharged when sedation discharge criteria are met per below protocol. Upon Completions of procedure up to 15 minutes continue every 5 minute vital signs and the P.A.R. score; then discharge to a Phase I or Fast Track to Phase II per the following guidelines: * Discharge Patient to appropriate Phase II area if PAR is 8 or greater or return to pre- procedure baseline. The post - procedure orders will be as directed. * If PAR score is less than 8 or not return to pre-procedure baseline then patient will follow Phase I monitoring till PAR is reached for Phase II. The Phase I may be done in procedure room or may call to secure a Phase I area. * If naloxone or flumazenil are used for reversal, hold in Phase I for continued monitoring from when last reversal dose was given for a minimum of 60 minutes or longer pending the nurse and/or physician discretion of patient condition before discharge to Phase II. Please call the Sedation Physician to re-evaluate and complete post-note for discharge to Phase II area. Do NOT discharge from procedure sedation or Phase 1 until post- sedation evaluation note is complete by procedure /sedation MD Sedation Discharge Instructions to be given to the patient at discharge to home.
[2022-09-14] MEDS: ACETAMINOPHEN 325 MG TAB PO PRN (15:39)
[2022-09-14] MEDS ORDERED: ACETAMINOPHEN 325 MG TAB PO PRN (17:15)
--- NOTE | 2022-09-14 17:19 | Hospitalist Progress Note ---
Date of Service September 14, 2022 Assessment & Plan (1) Syncope: (2) Heart block: Plan: 61-year-old female with past medical history of hypertension presented to the ED with 2 episode of syncopal episode Orthostatics positive on admission Patient was admitted to telemetry floor for further care On the night of september 12, 2022; patient had multiple episode of complete heart block which were symptomatic. Longest pause was 15 seconds. Echocardiogram reviewed; EF of 55 to 60% with normal systolic function. No significant valvular pathology. EKG personally reviewed; normal sinus rhythm with nonspecific ST or T wave changes. Labs reviewed; hemoglobin 11.5; stable Lyme antibody negative Status post permanent pacemaker placement on 09/14/2022 Monitoring telemetry overnight. Chronic conditions; Hypertension -currently on amlodipine and bisoprolol. Hyperlipidemiacontinue Lipitor GERDcontinue pantoprazole Full code DVT prophylaxis SCDs Discussed with patient's daughter over the phone. Answered questions/queries. Time spent evaluating patient, direct bedside care, chart review, placing orders, interpretation of diagnostic studies, discussion with consultants, patient, and family members, as well as other required patient management activities is 60 minutes. Please note the above document was generated using voice recognition software. It may contain grammatical, syntax or spelling errors. Any formal questions or concerns about the content, text or information contained within the body of this dictation should be directly addressed to the provider for clarification Admission and Anticipated Discharge Date Admission Date: September 13, 2022 Subjective Patient seen and examined at bedside after the procedure. She is comfortable; not in distress. Review of Systems Review of Systems: All systems reviewed & are unremarkable except as noted in Subjective Physical Exam Physical Exam: Constitutional: WD/WN, vitals as above, NAD, sitting up in bed, pleasant, conversing easily Respiratory: normal respiratory effort, lungs clear to auscultation, no wheeze, rales, rhonchi. Normal insp/exp effort, no accessory muscle use Cardiovascular: RRR, no murmur, no edema Vessels: no JVD or carotid bruit Chest: normal inspection of chest Abdomen: normal bowel sounds, soft, nontender, no hepatosplenomegaly Musculoskeletal: no cyanosis or clubbing, extremities motor strength 5/5 Skin: no rashes, warm and dry normal turgor Neurologic: PERRL, EOMI, accommodation nl, no face palsy, no dysarthria CN's II- XI intact bilaterally and moves all extremities Psychiatric: A+Ox3, euthymic affect Results & Data Results & Data Vital Signs (Past 12 Hours) Vital Signs Temp Pulse Pulse Pulse Resp BP BP 09/14/22 17:02 36.8 C 98 H 18 143/86 H 09/14/22 16:32 36.8 C 100 H 16 121/82 09/14/22 15:59 36.6 C 86 18 148/82 H 09/14/22 15:04 85 09/14/22 15:41 98 H 158/97 H 09/14/22 15:06 36.3 C L 83 154/83 H 09/14/22 14:55 90 16 151/89 H 09/14/22 14:40 90 16 127/95 09/14/22 11:47 36.7 C 91 H 18 140/77 09/14/22 07:57 36.5 C 103 H 18 144/79 H 09/14/22 05:59 82 Pulse Ox O2 Del Method 09/14/22 17:02 98 Room Air 09/14/22 16:32 99 Room Air 09/14/22 15:59 90 Room Air 09/14/22 15:04 09/14/22 15:41 97 Room Air 09/14/22 15:06 96 Room Air 09/14/22 14:55 98 Room Air 09/14/22 14:40 97 Room Air 09/14/22 11:47 96 Room Air 09/14/22 07:57 98 Room Air 09/14/22 05:59 Laboratory Results Laboratory Results WBC 6.56 K/ul (4.8-10.8) 09/13/22 04:16 RBC 4.32 M/uL (4.20-5.40) 09/13/22 04:16 Hgb 11.5 g/dl (12.0-16.0) L 09/13/22 04:16 Hct 35.3 % (37.0-47.0) L 09/13/22 04:16 MCV 81.7 fL (80.0-100.0) 09/13/22 04:16 MCH 26.6 pg (25.0-34.0) 09/13/22 04:16 MCHC 32.6 g/dL (32.0-36.0) 09/13/22 04:16 RDW Std Deviation 41.2 fL (36.4-46.3) 09/13/22 04:16 RDW Coeff of [place] 13.8 % (11.5-14.5) 09/13/22 04:16 Plt Count 278 K/uL (130-400) 09/13/22 04:16 MPV 8.9 fL (9.4-12.4) L 09/13/22 04:16 Immature Gran % (Auto) 0.2 % 09/13/22 04:16 Neut % (Auto) 42.2 % 09/13/22 04:16 Lymph % (Auto) 41.9 % 09/13/22 04:16 [place] % (Auto) 8.2 % 09/13/22 04:16 Eos % (Auto) 6.9 % 09/13/22 04:16 Baso % (Auto) 0.6 % 09/13/22 04:16 Neut # (Auto) 2.77 K/uL (1.40-6.50) 09/13/22 04:16 Lymph # (Auto) 2.75 K/uL (1.2-3.4) 09/13/22 04:16 [place] # (Auto) 0.54 K/uL (0.11-0.59) 09/13/22 04:16 Eos # (Auto) 0.45 K/uL (0-0.50) 09/13/22 04:16 Baso # (Auto) 0.04 K/uL (0-0.2) 09/13/22 04:16 Immature Gran # (Auto) 0.01 K/uL (0.01-0.20) 09/13/22 04:16 PT 10.3 Seconds (9.0-12.0) 09/11/22 21:00 INR 0.9 (0.9-1.1) 09/11/22 21:00 APTT 26.3 Seconds (21.0-31.0) 09/13/22 04:16 PTT Ratio 0.9 09/13/22 04:16 Sodium 137 mmol/L (136-145) 09/14/22 08:10 Potassium 3.9 mmol/L (3.5-5.1) 09/14/22 08:10 Chloride 104 mmol/L (98-107) 09/14/22 08:10 Carbon Dioxide 26 mmol/L (21-32) 09/14/22 08:10 Anion Gap 7 (3-11) 09/14/22 08:10 BUN 6 mg/dl (6-23) 09/14/22 08:10 Creatinine 0.74 mg/dl (0.6-1.2) 09/14/22 08:10 Est Cr Clr Drug Dosing 66.3 ml/min 09/14/22 08:10 Est GFR ( Amer) 99.9 ml/min 09/14/22 08:10 Est GFR (Non-Af Amer) 86.2 ml/min 09/14/22 08:10 BUN/Creatinine Ratio 8.1 (10-20) L 09/14/22 08:10 Glucose 120 mg/dl (70-99(Fasting)) H 09/14/22 08:10 POC Glucose 84 mg/dl (70-99) 09/14/22 16:01 Estimat Average Glucose 140 mg/dl 09/11/22 21:00 Hemoglobin A1c 6.5 % (4.5-5.6) H 09/11/22 21:00 Calcium 9.4 mg/dl (8.6-10.3) 09/14/22 08:10 Magnesium 1.9 mg/dl (1.7-2.4) 09/14/22 08:10 Total Bilirubin 0.4 mg/dl (0.2-1.0) 09/13/22 04:16 Direct Bilirubin 0.0 mg/dl (0-0.2) 09/13/22 04:16 AST 55 U/L (13-39) H 09/13/22 04:16 ALT 75 U/L (7-52) H 09/13/22 04:16 Alkaline Phosphatase 86 U/L (34-104) 09/13/22 04:16 Troponin I High Sens 3.7 pg/ml (0-14) 09/13/22 04:16 Total Protein 6.8 gm/dl (6.0-8.3) 09/13/22 04:16 Albumin 4.0 gm/dl (3.4-5.0) 09/13/22 04:16 Globulin 2.8 gm/dl (2.5-4.0) 09/11/22 21:00 Albumin/Globulin Ratio 1.4 (0.9-2) 09/11/22 21:00 Lipase 38 U/L (11-82) 09/13/22 04:16 TSH 2.008 uIu/ml (0.300-4.500) 09/11/22 21:00 Urine Color Yellow 09/12/22 01:28 Urine Appearance Clear (Clear) 09/12/22 01:28 Urine pH 7.5 (4.5-7.5) 09/12/22 01:28 Ur Specific [place] 1.004 (1.000-1.030) 09/12/22 01:28 Urine Protein Negative (Negative) 09/12/22 01:28 Urine Glucose (UA) Negative (Negative) 09/12/22 01:28 Urine Ketones Negative (Negative) 09/12/22 01:28 Urine Blood Negative (Negative) 09/12/22 01:28 Urine Nitrite Negative (Negative) 09/12/22 01:28 Urine Bilirubin Negative (Negative) 09/12/22 01:28 Urine Urobilinogen Negative (Negative) 09/12/22 01:28 Ur Leukocyte Esterase Negative (Negative) 09/12/22 01:28 Lyme Disease IgG Ab Negative (Negative) 09/13/22 04:18 Lyme Disease IgM Ab Negative (Negative) 09/13/22 04:18 SARS-CoV-2, RNA, NAAT NEGATIVE (NEGATIVE) 09/12/22 02:15 Impressions Chest X-Ray 09/11/22 20:46 XR chest 1V not portable CLINICAL HISTORY: Chest pain, nonspecific TECHNIQUE: Single frontal radiograph of the chest was obtained. Comparison: None available at the time of this dictation. FINDINGS: No lines and tubes are seen. The cardiomediastinal silhouette is normal. The lungs are clear. No evidence of pleural effusion or pneumothorax. IMPRESSION: No acute chest disease. ACT 112: Negative or not required by law. Electronically signed by: Alexander Baird M.D. 09/12/2022 9:[address] 09/12/22 01:57 Exam(s): CT HEAD Without Contrast EXAM: CT Head Without Intravenous Contrast CLINICAL HISTORY: Syncope hit head. TECHNIQUE: Axial computed tomography images of the head/brain without intravenous contrast. CTDI is 36.67 mGy and DLP is 625.8 mGy-cm. Automated exposure control was utilized for the study. A dose lowering technique was utilized adhering to the principles of ALARA. COMPARISON: No relevant prior studies available. FINDINGS: Brain: Unremarkable. No hemorrhage. No significant white matter disease. No edema. Ventricles: Unremarkable. No ventriculomegaly. Bones/joints: Unremarkable. No acute fracture. Soft tissues: No significant overlying acute traumatic soft tissue abnormality. No radiopaque foreign body. Sinuses: Minimal mucosal thickening of a few ethmoid air cells and the minimally included superior right maxillary sinus. Mastoid air cells: Unremarkable as visualized. No mastoid effusion. IMPRESSION: No acute intracranial process identified. Electronically signed by: Carmine Hooks MD 09/12/22 02:28 AM Liver Ultrasound 09/13/22 05:52 ABDOMINAL ULTRASOUND, RIGHT UPPER QUADRANT HISTORY: Acute generalized abdominal pain with elevated LFTs abn lfts, bloating. COMPARISON: None. FINDINGS: Pancreas: The pancreas demonstrates a normal echotexture. Liver: 13.3 cm in length. 5 mm likely benign echogenic focus of the right hepatic lobe. Gallbladder: No gallbladder wall thickening. No gallstones. CBD: 0.6 cm. Right kidney: No hydronephrosis. IMPRESSION: Unremarkable exam. ACT 112: Negative or not required by law. Electronically signed by: Adolfo Perez M.D. 09/13/2022 7:38 AM (1) Syncope Syncope type: unspecified Qualified Code(s): R55 - Syncope and collapse
[2022-09-14] MEDS: ATORVASTATIN 10 MG TAB PO SCH (20:16)
[2022-09-14] MEDS: KETOROLAC TROMETHAMINE 10 MG TABLET PO PRN (22:28)
[2022-09-15 07:32] LABS: Basophils # (auto) 0.04 K/uL (0-0.2); Basophils % (auto) 0.4 %; Eosinophils # (auto) 0.77 K/uL (0-0.50); Eosinophils % (auto) 8.6 %; Hematocrit (blood only) 39.7 % (37.0-47.0); Hemoglobin 12.6 g/dl (12.0-16.0); Immature Granulocytes # (auto) 0.02 K/uL (0.01-0.20); Immature Granulocytes % (auto) 0.2 %; Lymphocytes # (auto) 2.55 K/uL (1.2-3.4); Lymphocytes % (auto) 28.6 %; Mean Corpuscular Hemoglobin 26.5 pg (25.0-34.0); Mean Corpuscular Hgb Conc 31.7 g/dL (32.0-36.0); Mean Corpuscular Volume 83.4 fL (80.0-100.0); Mean Platelet Volume 8.7 fL (9.4-12.4); Monocytes # (auto) 0.55 K/uL (0.11-0.59); Monocytes % (auto) 6.2 %; Neutrophils # (auto) 4.98 K/uL (1.40-6.50); Platelet Count 308 K/uL (130-400); RDW Coefficient of Variation 13.9 % (11.5-14.5); RDW Standard Deviation 42.6 fL (36.4-46.3); Red Blood Count 4.76 M/uL (4.20-5.40); White Blood Count 8.91 K/ul (4.8-10.8)
[2022-09-15 07:48] LABS: Calcium 9.3 mg/dl (8.6-10.3); Potassium 3.9 mmol/L (3.5-5.1)
[2022-09-15 07:54] LABS: BUN Creatinine Ratio 9.9 (10-20); Creatinine Clr Calc Pharmacy 68.4 ml/min; Est GFR (African American) 105.1 ml/min; Est GFR (Non-African American) 90.7 ml/min
--- NOTE | 2022-09-15 08:07 | Electrocardiogram Report ---
Test Reason : Blood Pressure : / mmHG Vent. Rate : 087 BPM Atrial Rate : 087 BPM P-R Int : 146 ms QRS Dur : 092 ms QT Int : 360 ms P-R-T Axes : 065 054 -02 degrees QTc Int : 433 ms Atrial-sensed ventricular-paced rhythm Abnormal ECG When compared with ECG of 14-SEP-2022 12:37, Electronic ventricular pacemaker has replaced Sinus rhythm Confirmed by Roger Saez ([id number]) on 09/15/2022 8:07:05 AM Referred By: REFERRED SELF Confirmed By:Roger Saez
[2022-09-15] MEDS: KETOROLAC TROMETHAMINE 10 MG TABLET PO PRN ×2 (08:08→08:11)
--- NOTE | 2022-09-15 08:19 | XRay Report ---
XR chest 2V PA/lateral CLINICAL HISTORY: EXACT TIME ORDERED Evaluate for pneumothorax and l TECHNIQUE: 2 views of the chest were obtained. Comparison: Comparison is made to chest radiograph 09/11/2022 FINDINGS: Dual lead pacemaker is seen. The cardiomediastinal silhouette is normal. Faint bibasilar airspace opa cities are seen. No evidence of pleural effusion or pneumothorax. IMPRESSION: Faint bibasilar airspace opacities which may represent atelectasis, pneumonia, and/or aspiration. ACT 112: Negative or not required by law. Electronically signed by: Alexander Baird M.D. 09/15/2022 8:17 AM
--- NOTE | 2022-09-15 08:20 | Cardiology Progress Note ---
Date of Service September 15, 2022 Assessment & Plan (1) Intermittent complete heart block: Plan 1. Postop day #1: The site looks good (even though she is having discomfort) and leads appear to be in good position on chest x-ray. On monitoring the pacemaker is working well. 2. Syncope: At this point it is almost certain that her syncope is due to periodic complete heart block. This should not happen again. 3. Intermittent complete heart block: She has well-documented complete heart block in the setting of a normal echocardiogram and a baseline normal electrocardiogram. Her Lyme screen is negative. Although she did take bisoprolol (last dose 3 days prior to pacemaker implantation) it seems unlikely that low-dose beta-blockade taken that long ago would contribute to continued intermittent complete heart block. A left bundle branch pacemaker was implanted on September 14, 2022, this style of implant was chosen due to likely future progression to higher AV block. Follow-up as per [facility] cardiology. Admission and Anticipated Discharge Date Admission Date: September 13, 2022 Subjective She is complaining of a lot of incisional discomfort, at the incision and below the pacemaker site. She is also complaining of left upper arm discomfort. No other chest discomfort or shortness of breath. Physical Exam Physical Exam: The incision looks clean and dry with mild (expected) ecchymosis, no drainage or swelling. Some tenderness as expected. Cardiac rhythm is regular with no rub Lungs are clear Left arm: No edema Results & Data Vital Signs (Past 12 Hours) Vital Signs Temp Pulse Pulse Resp BP Pulse Ox O2 Del Method 09/15/22 08:03 103 H 138/89 09/15/22 07:45 36.7 C 114 H 18 179/96 H 98 Room Air 09/15/22 03:31 36.5 C 91 H 18 138/78 97 Room Air 09/14/22 23:15 36.6 C 98 H 18 157/86 H 96 Room Air 09/14/22 21:30 36.4 C L 89 18 135/73 97 Room Air 09/14/22 21:00 36.8 C 92 H 18 155/79 H 97 Room Air 09/14/22 20:30 36.6 C 92 H 18 128/76 96 Room Air Laboratory Results CBC 09/15/22 Range/Units 06:54 WBC 8.91 (4.8-10.8) K/ul RBC 4.76 (4.20-5.40) M/uL Hgb 12.6 (12.0-16.0) g/dl Hct 39.7 (37.0-47.0) % Plt Count 308 (130-400) K/uL Neut # (Auto) 4.98 (1.40-6.50) K/uL Lymph # (Auto) 2.55 (1.2-3.4) K/uL [place] # (Auto) 0.55 (0.11-0.59) K/uL Eos # (Auto) 0.77 H (0-0.50) K/uL Baso # (Auto) 0.04 (0-0.2) K/uL Comprehensive Metabolic Panel 09/14/22 09/15/22 Range/Units 08:10 06:54 Sodium 137 137 (136-145) mmol/L Potassium 3.9 3.9 (3.5-5.1) mmol/L Chloride 104 103 (98-107) mmol/L Carbon Dioxide 26 26 (21-32) mmol/L BUN 6 7 (6-23) mg/dl Creatinine 0.74 0.71 (0.6-1.2) mg/dl Glucose 120 H 109 H (70-99(Fasting)) mg/dl Calcium 9.4 9.3 (8.6-10.3) mg/dl Intake and Output 09/14/22 09/15/22 09/15/22 22:59 06:59 14:59 Intake Total 153.333 / 756.666 354 / 756.666 Balance 153.333 / 755.666 354 / 755.666 Intake: IV 153.333 / 402.666 Sodium Chloride 0.9% 1000ML 1, 153.333 / 402.666 000 ml @ 80 mls/hr IV .[id number] [facility] Rx#:[id number] Oral 354 / 354 Other: Weight 65.3 kg Weight Measurement Method Built in [facility] Diagnostic Findings Postop ECG: Atrial sensing and ventricular pacing, ventricular paced complexes may be fusion or appropriate left bundle pacing. Normal pacemaker function. Telemetry: Normal pacer function Chest x-ray: Good lead position, no pneumothorax Pacemaker evaluation: Excellent pacing and sensing characteristics in both chambers. PG Care Time/CCT Total # of Minutes Spent Total Time Spent with Patient: Total time spent is greater than 50% in coordination of care (as documented) at patient's floor/unit and/or counseling patient: Coding Level of Care Code 18150 Post Operative Follow-Up Diagnoses Intermittent complete heart block I44.2 CPT Codes Dual Lead Pacemaker System - 60116 ([id number])
[2022-09-15] MEDS ORDERED: BISOPROLOL FUMARATE 5 MG TAB PO SCH (09:00)
[2022-09-15] MEDS: amLODIPine BESYLATE 5 MG TAB PO SCH (09:01)
[2022-09-15] MEDS: PANTOprazole 40 MG TAB PO SCH (09:02)
[2022-09-15] MEDS: MONTELUKAST SODIUM 10 MG TABLET PO SCH (09:02)
--- NOTE | 2022-09-15 10:29 | Cardiology Progress Note ---
Date of Service September 15, 2022 Assessment & Plan (1) Syncope: (2) Heart block: (3) Pacemaker: Plan I have arranged through our clinic that the patient will have a wound check next week and then have a follow-up with us at the [facility] in a few weeks. She should be receiving her hypertensive medications today including the Bystolic added increased dose of 5 mg. I would send her home on this dosage along with her other medications. Admission and Anticipated Discharge Date Admission Date: September 13, 2022 Subjective Through her daughter as an pricing analyst I answered all questions. The patient had some incisional pain which has improved. Review of Systems Review of Systems: Review of Systems: See HPI for pertinent positives. All other 10 point review of systems are negative. Physical Exam Physical Exam: General: no acute distress and stated age Head: normocephalic, no masses, lesions, tenderness or abnormalities Eyes: conjunctiva are pink and non-injected, sclera clear Neck: supple, no adenopathy, no bruits, normal jugular venous pulse, no hepatojugular reflux Chest: normal shape and normal respiratory effort Lungs: clear to auscultation and percussion Cardiac Exam: - regular rate & rhythm, no murmurs gallops or rubs - normal S1, normal S2 Pulses: 2(+) throughout Abdomen: abdomen soft, non-tender, no abnormal masses and no hepatosplenomegaly Musculoskeletal: no gait disturbance, no joint inflammation, no deforming arthritis Extremities: no edema and no cyanosis Neuro: grossly normal exam Results & Data Vital Signs (Past 12 Hours) Vital Signs Temp Pulse Pulse Resp BP Pulse Ox O2 Del Method 09/15/22 08:03 103 H 138/89 09/15/22 07:45 36.7 C 114 H 18 179/96 H 98 Room Air 09/15/22 03:31 36.5 C 91 H 18 138/78 97 Room Air 09/14/22 23:15 36.6 C 98 H 18 157/86 H 96 Room Air Laboratory Results Laboratory Results - last 24 hr 09/14/22 09/15/22 09/15/22 16:01 06:54 06:54 WBC 8.91 RBC 4.76 Hgb 12.6 Hct 39.7 MCV 83.4 MCH 26.5 MCHC 31.7 L RDW Std Deviation 42.6 RDW Coeff of [place] 13.9 Plt Count 308 MPV 8.7 L Immature Gran % (Auto) 0.2 Neut % (Auto) 56.0 Lymph % (Auto) 28.6 [place] % (Auto) 6.2 Eos % (Auto) 8.6 Baso % (Auto) 0.4 Neut # (Auto) 4.98 Lymph # (Auto) 2.55 [place] # (Auto) 0.55 Eos # (Auto) 0.77 H Baso # (Auto) 0.04 Immature Gran # (Auto) 0.02 Sodium 137 Potassium 3.9 Chloride 103 Carbon Dioxide 26 Anion Gap 8 BUN 7 Creatinine 0.71 Est Cr Clr Drug Dosing 68.4 Est GFR ( Amer) 105.1 Est GFR (Non-Af Amer) 90.7 BUN/Creatinine Ratio 9.9 L Glucose 109 H POC Glucose 84 Calcium 9.3 Magnesium 2.0 Medications Administered Current Inpatient Medications Acetaminophen (Acetaminophen 325 Mg Tab) 650 mg PO Q8H PRN PRN Reason: mild pain or fever Stop: 10/12/22 04:40 Last Admin: 09/14/22 20:16 Dose: 650 mg Amlodipine Besylate (Amlodipine Besylate 5 Mg Tab) [facility] Stop: 10/13/22 04:09 Last Admin: 09/15/22 09:01 Dose: 2.5 mg Atorvastatin Calcium (Atorvastatin 10 Mg Tab) 10 mg PO [facility] Stop: 10/12/22 20:59 Last Admin: 09/14/22 20:16 Dose: 10 mg Bisoprolol Fumarate (Bisoprolol Fumarate 5 Mg Tab) 5 mg PO DAILY [facility] Stop: 10/15/22 08:59 Last Admin: 09/15/22 08:11 Dose: 5 mg Promethazine HCl 6.25 mg/ (Sodium Chloride) 50.25 mls @ 201 mls/hr IV Q6H PRN PRN Reason: Nausea And Vomiting Stop: 10/12/22 04:40 Ketorolac Tromethamine (Ketorolac Tromethamine 10 Mg Tablet) 10 mg PO Q6H PRN PRN Reason: MODERATE PAIN Stop: 09/19/22 14:45 Last Admin: 09/15/22 08:11 Dose: 10 mg Lorazepam (Lorazepam 0.5 Mg Tab) 0.25 mg PO TID PRN PRN Reason: Anxiety Stop: 10/13/22 04:50 Last Admin: 09/14/22 22:32 Dose: 0.25 mg Montelukast Sodium (Montelukast Sodium 10 Mg Tablet) 10 mg PO DAILY [facility] Stop: 10/12/22 08:59 Last Admin: 09/15/22 09:02 Dose: 10 mg Pantoprazole Sodium (Pantoprazole 40 Mg Tab) 40 mg PO BID [facility] Stop: 10/13/22 22:29 Last Admin: 09/15/22 09:02 Dose: 40 mg Tramadol HCl (Tramadol Hcl 50 Mg Tablet) 25 mg PO Q4H PRN PRN Reason: SEVERE PAIN Stop: 10/13/22 04:03 (1) Syncope Syncope type: unspecified Qualified Code(s): R55 - Syncope and collapse
--- NOTE | 2022-09-15 15:10 | Discharge Summary ---
Discharge Summary Date of Service September 15, 2022 Notes For Next Care Provider Faint bibasilar airspace opacity seen on chest x-ray with asymptomatic patient, likely atelectasis, however, if patient develops respiratory symptoms or fever consider repeat chest x-ray. This was explained in detail to her daughter at discharge. Medication Changes From Visit INCREASE Bystolic to 5mg PO daily STOP olmesartan/amlodipine Admission HPI Per Admitting Provider History obtained from patient, family, and records. Medical history significant for HTN, hyperlipidemia, GERD, chronic anemia (possible baseline hemoglobin of 11-12 as per patient). 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 Patient not feeling well the last few days. Patient noted lightheaded symptoms on the upright position last night. Transient syncopal event resulting in head trauma witnessed by daughter. Patient remembers blacking out. Denies chest pain, SOB. No witnessed seizures, tongue biting, incontinence. Headache after head trauma. Patient may have been out for about a minute as per daughter. Another syncopal event witnessed by daughter while patient eating. Unresponsive episode not as prolonged as the first one. Patient brought to the ER for evaluation. 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 In the ER there were no significant electrolyte abnormalities and glucose was mildly elevated at 130. The patient was mildly anemic with a hemoglobin of 11.4 and there was no leukocytosis. TSH and troponin were normal. AST was mildly elevated at 55 and EKG was unremarkable. Orthostatic vital signs were negative. She was sent for CT scan of the brain which was negative. She continued to feel unwell with a head spinning sensation and dizziness which was worse upon standing. He was admitted to telemetry and cardiology was consulted. She has no prior history of heart disease and denied any activity related chest pain or progressive shortness of breath. She denied any orthopnea or lower extremity edema and had no history of heart murmur. She is being treated for hypertension with amlodipine on losartan. A1c was screened and 6.5. On telemetry she had several episodes of complete heart block lasting up for 9 seconds that were symptomatic. Cardiac troponins were negative. She had an unremarkable echocardiogram this admission. She denied any tick bites. Lyme serology was checked and negative. Syncope was likely secondary to intermittent complete heart block and pacemaker was indicated. This was placed on 09/14 without complications. The following day she reported a brief episode of "seeing black" in her field of vision, but denies feeling dizzy as if she were going to pass out. This was shortly after awakening and resolved quickly. She was mentating and ambulating at her baseline. A postoperative chest x-ray revealed faint bibasilar airspace opacities with a broad differential including atelectasis. Given the lack of respiratory symptoms and the fact that she was afebrile, this is less likely pneumonia. It was explained to her daughter in detail that if she were to get sick and symptomatic with pneumonia, to consider going to urgent care for repeat chest x-ray. She has a follow-up with cardiology in 1 week for pacemaker check. Social issues surrounding this admission include the patient having no medical insurance and applying for medical assistance. Care management was involved in assisting with connecting her with resources. She was discharged in stable condition with close primary care follow-up recommended. Discharge Exam CONSTITUTIONAL: WNWD, vitals as above, generally well-appearing, NAD EYES: EOMI bilaterally, PERRL, normal conjunctivae, no scleral icterus ENT: external ear and nose normal, oropharynx clear, no TM abnormality, no maxillary or ethmoid sinus tenderness NECK: trachea midline, no lymphadenopathy, normal thyroid RESPIRATORY: clear to auscultation bilaterally, no crackles, rales or wheezes, normal respiratory effort CARDIOVASCULAR: regular rate and rhythm, S1 and 2 heard without murmurs, gallops or rubs, no JVD, no peripheral edema, no carotid bruits CHEST: +pacemaker with surgical dressing in place to the left chest. GASTROINTESTINAL: normal bowel sounds, soft, nontender, no hepatomegaly, no guarding MUSCULOSKELETAL: strength 5/5 throughout, head is normocephalic and atraumatic SKIN: warm and dry NEUROLOGIC: CN 2-12 grossly intact, no sensory deficit, normal cognition, normal speech, no tremor PSYCHIATRIC: alert cooperative and oriented to person, place and time. Updated Medication List Medication Instructions Recorded Confirmed Type atorvastatin 10 mg PO DAILY 09/12/22 09/12/22 History montelukast 10 mg PO DAILY 09/12/22 09/12/22 History pantoprazole 20 mg PO DAILY PRN reflux 09/12/22 09/12/22 History bisoprolol fumarate 5 mg tablet 5 mg PO DAILY #30 tabs 09/15/22 Rx Hospital Stay Data Consultations 09/12/22 03:12 ED Decision to Admit Stat 09/13/22 03:46 Consult Cardiology Routine 09/14/22 08:33 Consult Cardiac Electrophysiology Routine Procedures Performed Operation Date: 09/14/22 12:30 Actual Procedures p Pacer with A/V Leads (Dual) - Demetrius Avila MD s Venogram, Unilateral - Demetrius Avila MD Diagnostic Imagining Performed 09/12/22 01:57 CT head/brain wo con Stat 09/13/22 05:52 US liver Urgent 09/14/22 12:15 EP Lab Images for PACS ONCE 09/14/22 13:12 CL Cath Imgs for PACS use only Routine Pending Results Patient Have Any Pending Studies at Discharge: No Discharge Instructions Given to Patient (Per Discharging Provider) You were admitted with syncope. Head CT wo contrast didn't show any acute abnormality. Echocardiology was done; ejection fraction is 55-60% with normal valve and contraction. The likely cause for this is drop in blood pressure. For now, Hold amlodipine-olmesartan, bisoprolol for now. You can start bisoprolol after 4 to 5 days when you stop feeling dizzy, ACTIVITY RECOMMENDATIONS: * Do not raise affected arm over head for 2 weeks. SPECIAL CARE INSTRUCTIONS: * If bleeding occurs, apply direct pressure to area for 5 minutes. * Call your doctor if you have severe pain, fever, drainage or bleeding at site. * Keep dressing on and dry for 48 hours then remove. * Keep any scheduled doctor's appointment. * Implant Card - hand held device with website information given. SKIN IRRITATION: * You may experience some redness and/or swelling in the area where radiation was administered. If any skin irritation occurs, please contact your family physician. FOLLOW UP VISIT: Keep any scheduled doctor appointments. Date & Time 09/22/2022 9:30 AM Provider [facility] Department Cardiology, [facility] Date & Time 10/13/2022 11:00 AM Provider Michael Riley DO Department Cardiology, [facility] Total Time Total Time Spent Total Time Spent (In Minutes): 60
== END 2022-09-15 18:08 | disposition home or self-care (01) | DRG 244 ==
LOC: EDBD → 2W 20:41 → ED 20:41 → 2W 09-12 04:48 → SUATTDRO 09-13 22:09 → 2S 09-14 15:27
DX: K21.9 Gastro-esophageal reflux disease without esophagitis; D64.9 Anemia, unspecified; E78.00 Pure hypercholesterolemia, unspecified; I44.2 Atrioventricular block, complete; I16.0 Hypertensive urgency; R73.9 Hyperglycemia, unspecified; I10 Essential (primary) hypertension; R00.1 Bradycardia, unspecified; G47.00 Insomnia, unspecified; E78.5 Hyperlipidemia, unspecified; Z65.8 Other specified problems related to psychosocial circumstances